=== PATIENT | female | born 1950 | race Caucasian/White ===

== ENCOUNTER 2018-03-28 20:02 | Inpatient (IN) ==
--- NOTE | 2018-03-28 21:46 | XR ---
EXAM DATE: 03/28/2018 9:43 PM EST AGE/SEX: 67 years / Female INDICATIONS: . Chest pain. CLINICAL DATA: This is the patient's initial encounter. Patient reports that signs and symptoms have been present for 1 day and indicates a pain score of 10/10. MEDICAL/SURGICAL HISTORY: None. None. COMPARISON: No prior exams available for comparison. FINDINGS: The heart size is normal. The lungs are clear. No effusion is seen. There is a retrocardiac mass with air lucency consistent with a moderate hiatal hernia. CONCLUSION: No acute cardiopulmonary abnormality. Moderate hiatal hernia. Electronically signed by: Samuel Maddox MD Board Certified Radiologist 03/28/2018 9:45 PM EST
[2018-03-28 21:57] LABS: Baso % (Auto) 0.6 % (0.0-2.0); Eos # (Auto) 0.3 th/mm3 (0.0-0.4); Hematocrit 37.1 % (35.0-46.0); Hemoglobin 12.5 gm/dL (11.6-15.3); Mean Corpuscular HGB Conc 33.8 % (32.0-36.0); Mean Corpuscular Hemoglobin 28.3 pg (27.0-34.0); Mean Corpuscular Volume 83.8 fL (80.0-100.0); Mean Platelet Volume 7.7 fL (7.0-11.0); Mono # (Auto) 0.5 th/mm3 (0.0-0.9); Neut # (Auto) 4.4 th/mm3 (1.8-7.7); Neut % (Auto) 60.4 % (16.0-70.0); Platelet Count 294 th/mm3 (150-450); Red Blood Count 4.43 mil/mm3 (4.00-5.30); Red Cell Distribution Width 14.8 % (11.6-17.2); White Blood Count 7.3 th/mm3 (4.0-11.0)
[2018-03-28 21:58] LABS: Activated Partial Thrombo Time 25.2 sec (23.4-31.7); Prothrombin Time 9.9 sec (9.8-11.6)
[2018-03-28 22:12] LABS: Albumin 3.8 g/dL (3.4-5.0); Anion Gap 9 meq/L (5-15); Aspartate Aminotransferase 21 U/L (15-37); Blood Urea Nitrogen 10 mg/dL (7-18); Calcium 8.6 mg/dL (8.5-10.1); Carbon Dioxide 22.6 meq/L (21.0-32.0); Chloride 107 meq/L (98-107); Glomerular Filtration Rate 69 mL/min (>89); Glucose,Random 99 mg/dL (74-106); Potassium 3.3 meq/L (3.5-5.1); Sodium 139 meq/L (136-145)
[2018-03-28 22:13] LABS: Alanine Aminotransferase 26 U/L (10-53)
[2018-03-28 22:16] LABS: Alkaline Phosphatase 131 U/L (45-117)
[2018-03-28 22:17] LABS: Creatine Kinase 68 U/L (26-192)
[2018-03-29] MEDS ORDERED: Morphine Inj 4 MG/ML Vial IV.PUSH ONE ×2 (00:17→02:04)
--- NOTE | 2018-03-29 02:00 | CT ---
EXAM DATE: 03/29/2018 1:53 AM EST AGE/SEX: 67 years / Female INDICATIONS: Midsternal chest pain, and shortness of breath. CLINICAL DATA: This is the patient's initial encounter. Patient reports that signs and symptoms have been present for 1 day and indicates a pain score of 7/10. MEDICAL/SURGICAL HISTORY: None. Tubal ligation. RADIATION DOSE: 10.58 CTDI (mGy) COMPARISON: No prior exams available for comparison. TECHNIQUE: Volumetric scanning was performed using a multi-row detector CT scanner during bolus infu melchor of 70 ml Omnipaque 350 (iohexol) nonionic water-soluble contrast as a single exam dose. The marielena a was post processed with a variety of visualization algorithms including full volume maximum intensi ty projection and sliding thin slab reformation. Using automated exposure control and adjustment of the mA and/or kV according to patient size, radiation dose was kept as low as reasonably achievable t o obtain optimal diagnostic quality images. DICOM format image data is available electronically for review and comparison. FINDINGS: Pulmonary Arteries: No filling defects are seen in the pulmonary arteries out to the subsegmental ve ssels. The left and right pulmonary arteries are normal in diameter. Lung: No infiltrates seen. Effusion: None. Mediastinum: No evidence of mediastinal or hilar adenopathy. Coronary calcifications. Large hiatal h ernia. Other: The axilla is unremarkable. CONCLUSION: This study is negative for pulmonary embolism. Electronically signed by: Samuel Jones MD Board Certified Radiologist 03/29/2018 1:59 AM EST
--- NOTE | 2018-03-29 02:08 | ED ---
HPI General Chief Complaint: Chest Pain Stated Complaint: Chest pain Time Seen by Provider: 03/28/18 23:58 Source: patient Mode of arrival: ambulatory Limitations: no limitations History of Present Illness HPI narrative: 67 yo F c/o chest pain for the past day, 7/10 in severity, constant, retrosternal pain. pleuritic and exertional components reported. pt drove down from [place] approx 1 week ago. no fever/chills. no cough. 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 pt denies past hx HTN/HLD/DM. + Family hx CAD. Related Data Home Medications Medication Instructions Recorded Confirmed No Known Home Medications 03/28/18 03/28/18 Allergies Allergy/AdvReac Type Severity Reaction Status Date / Time No Known Allergies Allergy Verified 03/28/18 20:27 Review of Systems ROS: all other systems reviewed are negative [facility] Medical History Medical History Patient denies medical problems (Acute) TMJ (dislocation of temporomandibular joint) (Acute) Surgical History Surgical History History of ankle surgery (Acute) History of tonsillectomy (Acute) Hx of knee surgery (Acute) Hx of tubal ligation (Acute) Social History Social History Smoking Status: Never smoker How Often Do You Have a Drink Containing Alcohol: Never Recent Travel in [facility] within the Last 8 Weeks: No Recent Out of Country Travel within the Last 8 Weeks: Yes Immunization History Tetanus Immunization: <5 Years Exam Narrative Exam Narrative: GENERAL: 67 yo F, WNWD, mild distress 2/2 pain SKIN: Focused skin assessment warm/dry. HEAD: Atraumatic. Normocephalic. EYES: Pupils equal and round. No scleral icterus. No injection or drainage. ENT: No nasal bleeding or discharge. Mucous membranes pink and moist. NECK: Trachea midline. No JVD. CARDIOVASCULAR: Regular rate and rhythm. No murmur appreciated. RESPIRATORY: No accessory muscle use. Clear to auscultation. Breath sounds equal bilaterally. GASTROINTESTINAL: Abdomen soft, non-tender, nondistended. Hepatic and splenic margins not palpable. MUSCULOSKELETAL: No obvious deformities. No clubbing. No cyanosis. No edema. NEUROLOGICAL: Awake and alert. No obvious cranial nerve deficits. Motor grossly within normal limits. Normal speech. PSYCHIATRIC: Appropriate mood and affect; insight and judgment normal. Course Initial Documented Vital Signs Temperature 98.5 F 03/28/18 20:23 Pulse Rate 90 03/28/18 20:23 Respiratory Rate 18 03/28/18 20:23 Blood Pressure 147/70 H 03/28/18 20:23 Pulse Oximetry 98 03/28/18 20:23 Last Documented Vital Signs Temperature 98.5 F 03/28/18 20:23 Pulse Rate 85 03/29/18 03:26 Respiratory Rate 16 03/29/18 03:26 Blood Pressure 156/81 H 03/29/18 03:26 Pulse Oximetry 99 03/29/18 03:26 Medical Decision Making MDM Narrative Medical decision making narrative: CBC normal K 3.3 Tn < 0.02 x 2 EKG sinus, rate 74, normal axis/intervals, no TWI/T wave flattening Persistent pain 5-7/10 after nitro SL x 3 and morphine followed by nitropaste and a second round of morphine. 310AM with persistent pain d/w Dr Yin for cardiology: [facility], heparin, metoprolol, aspirin, nitro, o2 Call to [facility] at 310AM d/w Dr Alvarado at 330AM Medical Screen Exam Complete: Yes Emergency Medical Condition: Yes Lab Data Result diagrams: 03/28/18 21:07 03/28/18 21:07 Lab Results 03/28/18 03/28/18 03/28/18 Range/Units 21:07 21:07 21:07 WBC 7.3 (4.0-11.0) th/mm3 RBC 4.43 (4.00-5.30) mil/mm3 Hgb 12.5 (11.6-15.3) gm/dL Hct 37.1 (35.0-46.0) % MCV 83.8 (80.0-100.0) fL MCH 28.3 (27.0-34.0) pg MCHC 33.8 (32.0-36.0) % RDW 14.8 (11.6-17.2) % Plt Count 294 (150-450) th/mm3 MPV 7.7 (7.0-11.0) fL Neut % (Auto) 60.4 (16.0-70.0) % Lymph % (Auto) 28.0 (9.0-44.0) % Phelps % (Auto) 7.0 (0.0-8.0) % Eos % (Auto) 4.0 (0.0-4.0) % Baso % (Auto) 0.6 (0.0-2.0) % Neut # (Auto) 4.4 (1.8-7.7) th/mm3 Lymph # (Auto) 2.0 (1.0-4.8) th/mm3 Phelps # (Auto) 0.5 (0.0-0.9) th/mm3 Eos # (Auto) 0.3 (0.0-0.4) th/mm3 Baso # (Auto) 0.0 (0.0-0.2) th/mm3 WBC Differential . Differential Comment Auto diff final PT 9.9 (9.8-11.6) sec INR 1.0 Ratio APTT 25.2 (23.4-31.7) sec Sodium 139 (136-145) meq/L Potassium 3.3 L (3.5-5.1) meq/L Chloride 107 (98-107) meq/L Carbon Dioxide 22.6 (21.0-32.0) meq/L Anion Gap 9 (5-15) meq/L BUN 10 (7-18) mg/dL Creatinine 0.83 (0.50-1.00) mg/dL Estimated GFR 69 L (>89) mL/min Random Glucose 99 (74-106) mg/dL Calcium 8.6 (8.5-10.1) mg/dL Total Bilirubin 0.3 (0.2-1.0) mg/dL AST 21 (15-37) U/L ALT 26 (10-53) U/L Alkaline Phosphatase 131 H (45-117) U/L Total Creatine Kinase 68 (26-192) U/L Troponin I Less than 0.02 L (0.02-0.05) ng/mL Total Protein 7.0 (6.4-8.2) g/dL Albumin 3.8 (3.4-5.0) g/dL 03/29/18 Range/Units 02:14 WBC (4.0-11.0) th/mm3 RBC (4.00-5.30) mil/mm3 Hgb (11.6-15.3) gm/dL Hct (35.0-46.0) % MCV (80.0-100.0) fL MCH (27.0-34.0) pg MCHC (32.0-36.0) % RDW (11.6-17.2) % Plt Count (150-450) th/mm3 MPV (7.0-11.0) fL Neut % (Auto) (16.0-70.0) % Lymph % (Auto) (9.0-44.0) % Phelps % (Auto) (0.0-8.0) % Eos % (Auto) (0.0-4.0) % Baso % (Auto) (0.0-2.0) % Neut # (Auto) (1.8-7.7) th/mm3 Lymph # (Auto) (1.0-4.8) th/mm3 Phelps # (Auto) (0.0-0.9) th/mm3 Eos # (Auto) (0.0-0.4) th/mm3 Baso # (Auto) (0.0-0.2) th/mm3 WBC Differential Differential Comment PT (9.8-11.6) sec INR Ratio APTT (23.4-31.7) sec Sodium (136-145) meq/L Potassium (3.5-5.1) meq/L Chloride (98-107) meq/L Carbon Dioxide (21.0-32.0) meq/L Anion Gap (5-15) meq/L BUN (7-18) mg/dL Creatinine (0.50-1.00) mg/dL Estimated GFR (>89) mL/min Random Glucose (74-106) mg/dL Calcium (8.5-10.1) mg/dL Total Bilirubin (0.2-1.0) mg/dL AST (15-37) U/L ALT (10-53) U/L Alkaline Phosphatase (45-117) U/L Total Creatine Kinase (26-192) U/L Troponin I Less than 0.02 L (0.02-0.05) ng/mL Total Protein (6.4-8.2) g/dL Albumin (3.4-5.0) g/dL Imaging Data Radiologist's impression: Chest X-Ray 03/28/18 00:00 CONCLUSION: No acute cardiopulmonary abnormality. Moderate hiatal hernia. Chest CTA 03/29/18 00:17 CONCLUSION: This study is negative for pulmonary embolism. Discharge Plan Discharge Order Discharge Orders: ED Use Only Admit Order (Routine); Ordered 03/29/18 Ordered By: Chirag Mai Physicians Team ED Provider: Chirag Mai Attending Provider: Lashay Alvarado Rxs /Orders / Referrals /Forms Prescriptions: No Action No Known Home Medications RF: 0 Discharge Interventions Interventions: Vital Signs Last Done: 03/29/18 03:26 Status ED Status: With Doctor
[2018-03-29] MEDS ORDERED: Heparin 10,000 UNITS/10 ML Vial (for IV use) IV.PUSH STA (03:14)
[2018-03-29] MEDS ORDERED: Metoprolol Tartrate 25 MG Tablet PO ONE (03:18)
[2018-03-29] MEDS ORDERED: Aluminum/Magnesium/Simethacone Susp 30 ML UDC PO ONE (03:21)
[2018-03-29] MEDS ORDERED: Bisacodyl 10 MG Supp RECTAL PRN (03:25)
[2018-03-29] MEDS: Heparin Drip 25,000 UNIT/250 ML BAG IV.CONT PRN (03:34)
[2018-03-29] MEDS: Sod Chloride 0.9% Inj 1,000 ML IV.CONT SCH ×2 (04:10→16:02)
--- NOTE | 2018-03-29 04:32 | P.HPIM ---
History of Present Illness Primary Care Physician: Salvador Sandoval History of Present Illness: This is a 67-year-old female with no significant PMH who presented to the ER with complaints of chest pain x1 day. States pain is substernal, moderate to severe, 7-8/10, non-radiating, associated w/ SOB. 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 Notes significant h/o Cardiac Disease, father at age 35yrs w/ [place], multiple family members w/ CAD. Today, w/ ongoing chest pain. Denies fever, chills or cough. On arrival, BP 179/82, HR 84, O2 sat 100% on RA, Afebrile. CBC unremarkable. INR 1.0. Chemistry unremarkable. Troponin negative x2. S/p multiple doses of NTG and Morphine in ER w/ persistent c/o chest pain. Dr. Yin consulted, recommendation for Heparin gtt w/ eval in am. Diagnosis (1) ACS (acute coronary syndrome): (2) Chest pain: (3) HTN (hypertension): Inpatient Certification Inpatient Certification: I certify that the inpatient services were ordered in accordance with Medicare regulations governing the order. This includes certification that hospital inpatient services are reasonable and necessary and in the case of services not specified as inpatient-only under 42 CFR 419.22(n), that they are appropriately provided as inpatient services in accordance to with the 2-midnight benchmark under 43 CFR 412.3(e) Estimated Total Length of Stay (Days): 2 Plans for Post Hospital Care: Not yet determined Review of Systems PAST FAMILY HISTORY: Reviewed, significant for CAD and multiple family members , father at age 35 of [place]. Review of Systems: all other systems reviewed are negative [facility] Medical History Medical History Patient denies medical problems (Acute) TMJ (dislocation of temporomandibular joint) (Acute) Surgical History Surgical History History of ankle surgery (Acute) History of tonsillectomy (Acute) Hx of knee surgery (Acute) Hx of tubal ligation (Acute) Social History Social History Smoking Status: Never smoker How Often Do You Have a Drink Containing Alcohol: Never Recent Travel in [place] within the Last 8 Weeks: No Recent Out of Country Travel within the Last 8 Weeks: Yes Immunization History Tetanus Immunization: <5 Years Medications and Allergies Allergies Allergy/AdvReac Type Severity Reaction Status Date / Time No Known Allergies Allergy Verified 03/28/18 20:27 Home Medications Medication Instructions Recorded Confirmed Type No Known Home Medications 03/28/18 03/28/18 History Active Medications: Active Medications Acetaminophen (Tylenol) 650 mg PO Q4H PRN PRN Reason: Temp > 100.4 Al Hydroxide/Mg Hydroxide (Milk Of Magnesia Liq) 30 ml PO Q12H PRN PRN Reason: Mild Constipation Aspirin (Ecotrin) 81 mg PO DAILY [facility] Bisacodyl (Dulcolax Supp) 10 mg RECTAL DAILY PRN PRN Reason: SEVERE CONSITIPATION Heparin Sodium/Dextrose (Heparin/D5w 25,000 U/250 Ml) 25,000 unit in 250 mls @ 0 mls/hr IV.CONT TITRATE PRN; Protocol PRN Reason: Per Protocol Last Admin: 03/29/18 03:34 Dose: 1,000 units/hr, 10 mls/hr Sodium Chloride (Ns Inj) 1,000 mls @ 100 mls/hr IV.CONT .Q10H [facility] Last Admin: 03/29/18 04:10 Dose: 100 mls/hr Lactulose (Lactulose Liq) 30 ml PO DAILY PRN PRN Reason: SEVERE CONSITIPATION Morphine Sulfate (Morphine Inj) 2 mg IV.PUSH Q4H PRN PRN Reason: PAIN SCALE 6 TO 10 Ondansetron HCl (Zofran Inj) 4 mg IV.PUSH Q6H PRN PRN Reason: NAUSEA OR VOMITING Pravastatin Sodium (Pravachol) 40 mg PO DAILY [facility] Senna/Docusate Sodium (Lola-Colace) 1 tab PO BID [facility] Sennosides (Senokot) 17.2 mg PO Q12H PRN PRN Reason: Moderate Constipation Sodium Chloride (Ns Flush) 2 ml IV.FLUSH BID [facility] Sodium Chloride (Ns Flush) 2 ml IV.FLUSH PRN PRN PRN Reason: FLUSH AFTER USING IV ACCESS Physical Exam Vital signs: Vital Signs 03/28/18 20:23 03/28/18 23:48 03/29/18 00:24 Temperature 98.5 F Pulse Rate 90 89 84 Respiratory Rate 18 16 16 Blood Pressure 147/70 H 179/82 H Pulse Oximetry 98 100 100 03/29/18 00:39 03/29/18 00:40 03/29/18 01:12 Temperature Pulse Rate 83 Respiratory Rate 16 16 Blood Pressure 180/86 H 161/72 H Pulse Oximetry 100 03/29/18 02:17 03/29/18 02:27 03/29/18 03:26 Temperature Pulse Rate 79 84 85 Respiratory Rate 20 16 16 Blood Pressure 189/88 H 165/76 H 156/81 H Pulse Oximetry 100 99 99 Intake & Output 03/28/18 03/28/18 03/29/18 06:59 18:59 06:59 Weight 97.522 kg Narrative: PE: GENERAL: Very pleasant middle-aged white female in no acute distress, persistent chest pain. SKIN: Focused skin assessment warm and dry. HEENT: PERRLA, EOMI. No scleral icterus or conjunctival pallor. No lid lag or facial droop. CARDIOVASCULAR: Regular rate and rhythm. No obvious murmurs to auscultation. No chest tenderness to palpation. RESPIRATORY: No obvious rhonchi or wheezing. Clear to auscultation. Breath sounds equal bilaterally. GASTROINTESTINAL: Abdomen soft, non-tender, nondistended. BS normal. MUSCULOSKELETAL: Extremities without clubbing, cyanosis, or edema. No obvious deformities. NEUROLOGICAL: Awake, alert and oriented x4. No focal neurologic deficits. Moving both upper and lower extremities spontaneously. PSYCHIATRIC: Appropriate mood and affect. Insight and judgment normal. Results Labs CBC & Chem 7: 03/28/18 21:07 03/28/18 21:07 Imaging Impressions Chest X-Ray 03/28/18 00:00 CONCLUSION: No acute cardiopulmonary abnormality. Moderate hiatal hernia. Chest CTA 03/29/18 00:17 CONCLUSION: This study is negative for pulmonary embolism. Caprini VTE Risk Assessment Caprini VTE Risk Assessment: No/Low Risk (score <= 1) Caprini Risk Assessment Model: Point Value = 1 Point Value = 2 Point Value = 3 Point Value = 5 Age 41-60 Minor surgery BMI > 25 kg/m2 Swollen legs Varicose veins or History of unexplained or recurrent spontaneous Oral contraceptives or hormone replacement Sepsis (< 1 month) Serious lung disease, including pneumonia (< 1 month) Abnormal pulmonary function Acute myocardial infarction Congestive heart failure (< 1 month) History of inflammatory bowel disease Medical patient at bed rest Age 61-74 Arthroscopic surgery Major open surgery (> 45 min) Laparoscopic surgery (> 45 min) Malignancy Confined to bed (> 72 hours) Immobilizing plaster cast Central venous access Age >= 75 History of VTE Family history of VTE Factor V Leiden Prothrombin [id number] Lupus anticoagulant Anticardiolipin antibodies Elevated serum homocysteine Heparin-induced thrombocytopenia Other congenital or acquired thrombophilia Stroke (< 1 month) Elective arthroplasty Hip, pelvis, or leg fracture Acute spinal cord injury (< 1 month) Prophylaxis Regimen: Total Risk Factor Score Risk Level Prophylaxis Regimen 0-1 Low Early ambulation 2 Moderate Order ONE of the following: *Sequential Compression Device (SCD) *Heparin 5000 units SQ BID 3-4 Higher Order ONE of the following medications: *Heparin 5000 units SQ TID *Enoxaparin/Lovenox 40 mg SQ daily (WT < 150 kg, CrCl > 30 mL/min) *Enoxaparin/Lovenox 30 mg SQ daily (WT < 150 kg, CrCl > 10-29 mL/min) *Enoxaparin/Lovenox 30 mg SQ BID (WT < 150 kg, CrCl > 30 mL/min) AND/OR *Sequential Compression Device (SCD) 5 or more Highest Order ONE of the following medications: *Heparin 5000 units SQ TID (Preferred with Epidurals) *Enoxaparin/Lovenox 40 mg SQ daily (WT < 150 kg, CrCl > 30 mL/min) *Enoxaparin/Lovenox 30 mg SQ daily (WT < 150 kg, CrCl > 10-29 mL/min) *Enoxaparin/Lovenox 30 mg SQ BID (WT < 150 kg, CrCl > 30 mL/min) AND *Sequential Compression Device (SCD) Assessment and Plan (1) ACS (acute coronary syndrome): Code(s): I24.9 - Acute ischemic heart disease, unspecified Status: Acute (2) Chest pain: Code(s): R07.9 - Chest pain, unspecified Status: Acute (3) HTN (hypertension): Code(s): I10 - Essential (primary) hypertension Status: Acute Plan A/P: 1. ACS: recent abnormal Stress Test 01/2018 back home in [place], now w/ ongoing chest pain, Dr. Yin consulted, recommendation for Heparin gtt, eval in am for likely cath. NPO, telemetry, continue Heparin gtt, NTG/Morphine prn. Check serial cardiac enzymes. 2. Chest Pain: Intractable, some improvement w/ NTG/Morphine, currently 04/20, will continue w/ analgesics/NTG as needed. ASA, Statin, Metoprolol 3. HTN: Uncontrolled, monitor BP, antihypertensives as needed, start Metoprolol. 4. DVT Prophylaxis: Heparin gtt 5. Social work for DC planning as needed. 6. Case discussed at length with the ER physician, labs/records/imaging reviewed by me.
[2018-03-29 04:59] LABS: Chol/HDL Ratio 3.65 Ratio; HDL Cholesterol 54.2 mg/dL (40.0-60.0)
[2018-03-29 07:53] LABS: Activated Partial Thrombo Time 52.2 sec (23.4-31.7); Prothrombin Time 10.5 sec (9.8-11.6)
--- NOTE | 2018-03-29 08:35 | P.PNIM ---
Subjective Interval history: Follow-up for chest pain Still with chest pain, substernal, about 4/10, worse with deep inhalation and pressing on her anterior chest area. No shortness of breath. Physical Exam Vital signs: Vital Signs 03/28/18 20:23 03/28/18 23:48 03/29/18 00:24 Temperature 98.5 F Pulse Rate 90 89 84 Respiratory Rate 18 16 16 Blood Pressure 147/70 H 179/82 H Pulse Oximetry 98 100 100 03/29/18 00:39 03/29/18 00:40 03/29/18 01:12 Temperature Pulse Rate 83 Respiratory Rate 16 16 Blood Pressure 180/86 H 161/72 H Pulse Oximetry 100 03/29/18 02:17 03/29/18 02:27 03/29/18 03:26 Temperature Pulse Rate 79 84 85 Respiratory Rate 20 16 16 Blood Pressure 189/88 H 165/76 H 156/81 H Pulse Oximetry 100 99 99 03/29/18 04:00 03/29/18 05:00 03/29/18 06:00 Temperature 96.6 F L Pulse Rate 74 77 76 Respiratory Rate 18 Blood Pressure 129/82 Pulse Oximetry 98 03/29/18 07:00 03/29/18 08:00 Temperature 97.9 F Pulse Rate 73 73 Respiratory Rate 18 Blood Pressure 109/57 L Pulse Oximetry 98 Intake & Output 03/28/18 03/29/18 03/29/18 18:59 06:59 18:59 Output Total 400 / 400 Balance -400 / -400 Weight 95 kg Output: Urine 400 / 400 Narrative: Not in distress Pupils equal round reactive Delphi conjunctivae Anicteric Regular rate and rhythm, no murmurs, reproducible tenderness on palpation of the chest Clear breath sounds Abdomen soft nontender No edema Alert awake and oriented x3, no focal deficits. Results Labs CBC & Chem 7: 03/28/18 21:07 03/28/18 21:07 Imaging Imaging: Impressions Chest X-Ray 03/28/18 00:00 CONCLUSION: No acute cardiopulmonary abnormality. Moderate hiatal hernia. Chest CTA 03/29/18 00:17 CONCLUSION: This study is negative for pulmonary embolism. Assessment and Plan (1) ACS (acute coronary syndrome): Code(s): I24.9 - Acute ischemic heart disease, unspecified Status: Acute (2) Chest pain: Code(s): R07.9 - Chest pain, unspecified Status: Acute (3) HTN (hypertension): Code(s): I10 - Essential (primary) hypertension Status: Acute Plan This is a 67-year-old female with no significant past medical history but with significant family history of cardiac illness, father at 35 from [place] presenting with chest pain for 1 day. r/o unstable angina- patient has strong family history, patient at 35 years old of [place]. Recent abnormal Stress Test 01/2018 back home in [place], now w/ ongoing chest pain, reproducible on chest palpation, cardiology consulted ,recommendation for Heparin gtt, troponin negative x2, EKG negative, showed sinus rhythm, normal axis, no ischemia. Keep n.p.o., for cardiac catheterization today. Continue nitroglycerin, morphine as needed. Continue aspirin, statin and metoprolol. LDL 131. CTA negative for PE. Patient even with negative EKG and cardiac enzymes would prefer to get a cardiac catheterization at this point because of her risks. Uncontrolled hypertension-continue metoprolol DVT prophylaxis: Heparin drip. Progress Note: Quality VTE Deep Vein Thrombosis/Pulmonary Embolism Present on Admission: No
--- NOTE | 2018-03-29 09:32 | ECG ---
Date Performed: 03/29/2018 Time Performed: 02:11:04 PTAGE: 67 years EKG: Sinus rhythm BORDERLINE LEFT AXIS DEVIATION BORDERLINE ECG No significant change from prior electrocardiogram. PREVIOUS TRACING : 03/28/2018 21.00 DOCTOR: Juan Carlos Khan Interpretating Date/Time 03/29/2018 09:31:50
[2018-03-29] MEDS: Metoprolol Tartrate 25 MG Tablet PO SCH ×2 (11:03→20:01)
[2018-03-29] MEDS: Senna/Docusate Sodium 8.6/50 MG Tablet PO SCH ×2 (11:03→20:01)
[2018-03-29] MEDS: Morphine Sulfate Inj 2 MG/ML Vial IV.PUSH PRN (12:00)
--- NOTE | 2018-03-29 13:50 | MB ---
cc: Kenny Yin MD DATE: 03/29/2018 HISTORY OF PRESENT ILLNESS: This is a very pleasant 67-year-old lady visiting from [place] and apparently had a positive stress test in January, had a discussion about doing a heart catheterization, which she has not done. She presents to the ER with chief complaint of severe chest pain. She is resting comfortably currently. Denies fever, chills, cough, GI or bleeding, pain, orthopnea, syncope or dizziness. PAST MEDICAL HISTORY: Per history of present illness. She has a history of TMJ dislocation, ankle surgery, tonsillectomy, knee surgery, tubal ligation. ALLERGIES: NONE. SOCIAL HISTORY: Denies tobacco use. Denies alcohol use. MEDICATIONS IN THE HOSPITAL: 1. Aspirin 81 mg a day. 2. Heparin drip. 3. Toprol 25 mg b.i.d. 4. Pravachol 40 mg daily. PHYSICAL EXAMINATION: VITAL SIGNS: Pulse 74, blood pressure 109/57, respiratory rate 18, temperature 97.9. GENERAL: She is alert and oriented x3, in no acute distress. NECK: Supple. No JVD. No bruit. CARDIOVASCULAR: S1, S2. No murmurs, rubs or gallops. LUNGS: Clear to auscultation bilaterally. ABDOMEN: Soft, nontender, nondistended with positive bowel sounds. EXTREMITIES: No lower extremity edema. LABORATORY DATA: Her EKG shows normal sinus rhythm at 91 beats per minute, borderline left axis deviation, otherwise normal. CTA of the chest negative for pulmonary embolism. White count 7.3, hemoglobin 12.5, hematocrit 37.1, platelet count 294,000. INR 1, PTT 52.2. Troponin less than 0.02 x2. Sodium 139, potassium 3.3, chloride 107, bicarbonate 22.6, BUN 10, creatinine 0.3. LDL is 131. DIAGNOSES: 1. Unstable angina. 2. Hypokalemia. DISCUSSION: The patient is being appropriately treated with aspirin, heparin drip, beta myrtle and statin. She is relatively hypotensive, so EULA inhibitor is being held. Recommend repeating electrolytes p.r.n. and plan to perform left heart catheterization on 03/31/2018. The patient is currently asymptomatic on the aforementioned medications. MD RYNE Chambers/obdulia , 01:02 PM , 01:09 PM
--- NOTE | 2018-03-29 14:11 | ECG ---
Date Performed: 03/28/2018 Time Performed: 21:00:54 PTAGE: 67 years EKG: Sinus rhythm BORDERLINE LEFT AXIS DEVIATION BORDERLINE ECG NO PREVIOUS TRACING DOCTOR: Juan Carlos Khan Interpretating Date/Time 03/29/2018 14:09:24
[2018-03-29] MEDS ORDERED: Potassium Chloride Liq 20 MEQ/15 ML UDC PO ONE (15:13)
[2018-03-29] MEDS: Acetaminophen 325 MG Tablet PO PRN (20:01)
[2018-03-30] MEDS: Sod Chloride 0.9% Inj 1,000 ML IV.CONT SCH ×3 (01:14→22:50)
[2018-03-30] MEDS: Heparin Drip 25,000 UNIT/250 ML BAG IV.CONT PRN ×2 (01:16→15:39)
[2018-03-30] MEDS: Metoprolol Tartrate 25 MG Tablet PO SCH ×2 (09:09→20:25)
[2018-03-30] MEDS: Senna/Docusate Sodium 8.6/50 MG Tablet PO SCH ×2 (09:09→20:25)
--- NOTE | 2018-03-30 09:28 | P.PNIM ---
Subjective Interval history: EULA inhibitor is being held because of hypotension. No overnight events, no fever or chills, denies any chest pain. Physical Exam Vital signs: Vital Signs 03/29/18 10:00 03/29/18 11:00 03/29/18 12:00 Temperature 98.0 F Pulse Rate 70 68 70 Respiratory Rate 18 Blood Pressure 112/58 L Pulse Oximetry 98 03/29/18 13:00 03/29/18 14:00 03/29/18 15:00 Temperature Pulse Rate 68 70 72 Respiratory Rate Blood Pressure Pulse Oximetry 03/29/18 16:00 03/29/18 17:00 03/29/18 18:00 Temperature 97.8 F Pulse Rate 72 72 70 Respiratory Rate 20 Blood Pressure 118/68 Pulse Oximetry 98 03/29/18 19:00 03/29/18 20:00 03/29/18 21:00 Temperature 97.4 F L Pulse Rate 75 80 80 Respiratory Rate 18 Blood Pressure 107/55 L Pulse Oximetry 97 03/29/18 22:00 03/29/18 23:00 03/30/18 00:00 Temperature Pulse Rate 80 70 72 Respiratory Rate 16 Blood Pressure Pulse Oximetry 03/30/18 01:00 03/30/18 02:00 03/30/18 03:00 Temperature Pulse Rate 64 94 H 106 H Respiratory Rate Blood Pressure Pulse Oximetry 03/30/18 04:00 03/30/18 05:00 03/30/18 06:00 Temperature Pulse Rate 100 H 105 H 108 H Respiratory Rate Blood Pressure Pulse Oximetry 03/30/18 07:09 Temperature 98.1 F Pulse Rate 75 Respiratory Rate 17 Blood Pressure 117/78 Pulse Oximetry 98 Intake & Output 03/29/18 03/30/18 03/30/18 18:59 06:59 18:59 Intake Total 1480 / 1480 250 / 250 360 / 360 Output Total 800 / 800 2650 / 2650 Balance 680 / 680 250 / 250 -2290 / -2290 Weight 96 kg Intake: IV 1000 / 1000 250 / 250 Heparin/D5W 25,000 U/250 mL 25, 250 / 250 000 unit In 250 ml @ Per Protocol IV.CONT TITRATE PRN Rx #:[id number] NS Inj 1,000 ML @ 100 mls/hr IV 1000 / 1000 .CONT .Q10H JUSTINO Rx#:[id number] Oral 480 / 480 360 / 360 Output: Urine 800 / 800 2650 / 2650 Other: Date of Last Bowel Movement 03/29/18 03/29/18 03/29/18 # Bowel Movements 1 Narrative: Not in distress Pupils equal round reactive [place] conjunctivae Anicteric Regular rate and rhythm, no murmurs, reproducible tenderness on palpation of the chest Clear breath sounds Abdomen soft nontender No edema Alert awake and oriented x3, no focal deficits. Results Labs CBC & Chem 7: 03/30/18 07:03 03/30/18 07:03 Assessment and Plan (1) ACS (acute coronary syndrome): Code(s): I24.9 - Acute ischemic heart disease, unspecified Status: Acute (2) Chest pain: Code(s): R07.9 - Chest pain, unspecified Status: Acute (3) HTN (hypertension): Code(s): I10 - Essential (primary) hypertension Status: Acute Plan This is a 67-year-old female with no significant past medical history but with significant family history of cardiac illness, father at 35 from [place] presenting with chest pain for 1 day. r/o unstable angina- patient has strong family history, patient at 37 years old of [place]. Recent abnormal Stress Test 01/2018 back home in [place], now w/ ongoing chest pain, reproducible on chest palpation, cardiology consulted ,recommendation for Heparin gtt, troponin negative x2, EKG negative, showed sinus rhythm, normal axis, no ischemia. Continue nitroglycerin, morphine as needed. Continue aspirin, statin and metoprolol. LDL 131. CTA negative for PE. Patient even with negative EKG and cardiac enzymes, for cardiac catheterization on Saturday. N.p.o. after midnight. CBC and BMP stable. Hypertension-continue metoprolol. DVT prophylaxis: Heparin drip. Progress Note: Quality VTE Deep Vein Thrombosis/Pulmonary Embolism Present on Admission: No
[2018-03-30 09:32] LABS: Baso % (Auto) 0.3 % (0.0-2.0); Eos # (Auto) 0.2 th/mm3 (0.0-0.4); Eos % (Auto) 3.9 % (0.0-4.0); Hematocrit 36.2 % (35.0-46.0); Hemoglobin 12.2 gm/dL (11.6-15.3); Lymph # (Auto) 2.1 th/mm3 (1.0-4.8); Lymph % (Auto) 46.8 % (9.0-44.0); Mean Corpuscular HGB Conc 33.7 % (32.0-36.0); Mean Corpuscular Hemoglobin 28.7 pg (27.0-34.0); Mono # (Auto) 0.4 th/mm3 (0.0-0.9); Mono % (Auto) 8.8 % (0.0-8.0); Neut # (Auto) 1.8 th/mm3 (1.8-7.7); Neut % (Auto) 40.2 % (16.0-70.0); Platelet Count 249 th/mm3 (150-450); Red Blood Count 4.26 mil/mm3 (4.00-5.30); Red Cell Distribution Width 14.5 % (11.6-17.2); White Blood Count 4.6 th/mm3 (4.0-11.0)
[2018-03-30 10:00] LABS: Albumin 3.2 g/dL (3.4-5.0); Anion Gap 7 meq/L (5-15); Aspartate Aminotransferase 17 U/L (15-37); Blood Urea Nitrogen 9 mg/dL (7-18); Calcium 8.5 mg/dL (8.5-10.1); Carbon Dioxide 24.4 meq/L (21.0-32.0); Chloride 114 meq/L (98-107); Glomerular Filtration Rate 88 mL/min (>89); Glucose,Random 86 mg/dL (74-106); Sodium 145 meq/L (136-145)
[2018-03-30 10:01] LABS: Alanine Aminotransferase 28 U/L (10-53)
[2018-03-30 10:03] LABS: Alkaline Phosphatase 101 U/L (45-117); Total Protein 6.2 g/dL (6.4-8.2)
--- NOTE | 2018-03-30 12:04 | P.PNCA ---
Subjective Interval history: assymptomatic, in nad Medications and Allergies Active Medications: Active Medications Acetaminophen (Tylenol) 650 mg PO Q4H PRN PRN Reason: Temp > 100.4 Last Admin: 03/29/18 20:01 Dose: 650 mg Al Hydroxide/Mg Hydroxide (Milk Of Magnesia Liq) 30 ml PO Q12H PRN PRN Reason: Mild Constipation Aspirin (Ecotrin) 81 mg PO DAILY [facility] Last Admin: 03/30/18 09:09 Dose: 81 mg Bisacodyl (Dulcolax Supp) 10 mg RECTAL DAILY PRN PRN Reason: SEVERE CONSITIPATION Heparin Sodium/Dextrose (Heparin/D5w 25,000 U/250 Ml) 25,000 unit in 250 mls @ 0 mls/hr IV.CONT TITRATE PRN; Protocol PRN Reason: Per Protocol Last Admin: 03/30/18 01:16 Dose: 1,000 units/hr, 10 mls/hr Sodium Chloride (Ns Inj) 1,000 mls @ 100 mls/hr IV.CONT .Q10H [facility] Last Admin: 03/30/18 01:14 Dose: Not Given Lactulose (Lactulose Liq) 30 ml PO DAILY PRN PRN Reason: SEVERE CONSITIPATION Metoprolol Tartrate (Lopressor) 25 mg PO BID [facility] Last Admin: 03/30/18 09:09 Dose: 25 mg Morphine Sulfate (Morphine Inj) 2 mg IV.PUSH Q4H PRN PRN Reason: PAIN SCALE 6 TO 10 Last Admin: 03/29/18 12:00 Dose: 2 mg Ondansetron HCl (Zofran Inj) 4 mg IV.PUSH Q6H PRN PRN Reason: NAUSEA OR VOMITING Pravastatin Sodium (Pravachol) 40 mg PO DAILY [facility] Last Admin: 03/30/18 09:09 Dose: 40 mg Senna/Docusate Sodium (Lola-Colace) 1 tab PO BID [facility] Last Admin: 03/30/18 09:09 Dose: Not Given Sennosides (Senokot) 17.2 mg PO Q12H PRN PRN Reason: Moderate Constipation Sodium Chloride (Ns Flush) 2 ml IV.FLUSH BID [facility] Last Admin: 03/29/18 20:01 Dose: Not Given Sodium Chloride (Ns Flush) 2 ml IV.FLUSH PRN PRN PRN Reason: FLUSH AFTER USING IV ACCESS Allergies Allergy/AdvReac Type Severity Reaction Status Date / Time No Known Allergies Allergy Verified 03/28/18 20:27 Home Medications Medication Instructions Recorded Confirmed Type No Known Home Medications 03/28/18 03/28/18 History Physical Exam Vital signs: Vital Signs 03/29/18 13:00 03/29/18 14:00 03/29/18 15:00 Temperature Pulse Rate 68 70 72 Respiratory Rate Blood Pressure Pulse Oximetry 03/29/18 16:00 03/29/18 17:00 03/29/18 18:00 Temperature 97.8 F Pulse Rate 72 72 70 Respiratory Rate 20 Blood Pressure 118/68 Pulse Oximetry 98 03/29/18 19:00 03/29/18 20:00 03/29/18 21:00 Temperature 97.4 F L Pulse Rate 75 80 80 Respiratory Rate 18 Blood Pressure 107/55 L Pulse Oximetry 97 03/29/18 22:00 03/29/18 23:00 03/30/18 00:00 Temperature Pulse Rate 80 70 72 Respiratory Rate 16 Blood Pressure Pulse Oximetry 03/30/18 01:00 03/30/18 02:00 03/30/18 03:00 Temperature Pulse Rate 64 94 H 106 H Respiratory Rate Blood Pressure Pulse Oximetry 03/30/18 04:00 03/30/18 05:00 03/30/18 06:00 Temperature Pulse Rate 100 H 105 H 108 H Respiratory Rate Blood Pressure Pulse Oximetry 03/30/18 07:00 03/30/18 07:09 03/30/18 08:00 Temperature 98.1 F Pulse Rate 70 75 76 Respiratory Rate 17 Blood Pressure 117/78 Pulse Oximetry 98 03/30/18 09:00 03/30/18 10:00 Temperature Pulse Rate 90 82 Respiratory Rate Blood Pressure Pulse Oximetry Intake & Output 03/29/18 03/30/18 03/30/18 18:59 06:59 18:59 Intake Total 1480 / 1480 250 / 250 360 / 360 Output Total 800 / 800 2650 / 2650 Balance 680 / 680 250 / 250 -2290 / -2290 Weight 96 kg Intake: IV 1000 / 1000 250 / 250 Heparin/D5W 25,000 U/250 mL 25, 250 / 250 000 unit In 250 ml @ Per Protocol IV.CONT TITRATE PRN Rx #:[id number] NS Inj 1,000 ML @ 100 mls/hr IV 1000 / 1000 .CONT .Q10H [facility] Rx#:[id number] Oral 480 / 480 360 / 360 Output: Urine 800 / 800 2650 / 2650 Other: Date of Last Bowel Movement 03/29/18 03/29/18 03/29/18 # Bowel Movements 1 - Constitutional no acute distress - Routine HEENT Exam Head: Present: normocephalic - Routine Neck Exam Present: supple - Routine Respiratory Exam Present: CTA bilaterally - Routine Cardiovascular Exam Present: S1, S2 - Routine Abdominal Exam Present: soft - Routine Extremities Exam Comments: no riki Results 03/30/18 07:03 03/30/18 07:03 Cardiac Enzymes 03/28/18 03/29/18 03/29/18 Range/Units 21:07 02:14 02:14 AST 21 (15-37) U/L Troponin I Less than 0.02 L Less than 0.02 L Cancelled (0.02-0.05) ng/mL 03/30/18 Range/Units 07:03 AST 17 (15-37) U/L Troponin I (0.02-0.05) ng/mL Coagulation 03/28/18 03/29/18 03/29/18 Range/Units 21:07 07:29 13:35 PT 9.9 10.5 (9.8-11.6) sec APTT 25.2 52.2 H D 42.7 H (23.4-31.7) sec 03/30/18 Range/Units 07:03 PT (9.8-11.6) sec APTT 42.3 H (23.4-31.7) sec Lipids 03/29/18 Range/Units 02:14 Triglycerides 66 (42-150) mg/dL Cholesterol 198 (120-200) mg/dL HDL Cholesterol 54.2 (40.0-60.0) mg/dL Cholesterol/HDL Ratio 3.65 Ratio CBC 03/28/18 03/30/18 Range/Units 21:07 07:03 WBC 7.3 4.6 (4.0-11.0) th/mm3 RBC 4.43 4.26 (4.00-5.30) mil/mm3 Hgb 12.5 12.2 (11.6-15.3) gm/dL Hct 37.1 36.2 (35.0-46.0) % Plt Count 294 249 (150-450) th/mm3 Neut # (Auto) 4.4 1.8 (1.8-7.7) th/mm3 Lymph # (Auto) 2.0 2.1 (1.0-4.8) th/mm3 Summers # (Auto) 0.5 0.4 (0.0-0.9) th/mm3 Eos # (Auto) 0.3 0.2 (0.0-0.4) th/mm3 Baso # (Auto) 0.0 0.0 (0.0-0.2) th/mm3 Comprehensive Metabolic Panel 03/28/18 03/30/18 Range/Units 21:07 07:03 Sodium 139 145 (136-145) meq/L Potassium 3.3 L 4.0 (3.5-5.1) meq/L Chloride 107 114 H (98-107) meq/L Carbon Dioxide 22.6 24.4 (21.0-32.0) meq/L BUN 10 9 (7-18) mg/dL Creatinine 0.83 0.67 (0.50-1.00) mg/dL Calcium 8.6 8.5 (8.5-10.1) mg/dL AST 21 17 (15-37) U/L ALT 26 28 (10-53) U/L Alkaline Phosphatase 131 H 101 (45-117) U/L Total Protein 7.0 6.2 L D (6.4-8.2) g/dL Albumin 3.8 3.2 L D (3.4-5.0) g/dL Intake and Output 03/29/18 03/30/18 03/30/18 22:59 06:59 14:59 Intake Total 1480 / 1480 250 / 250 360 / 360 Output Total 800 / 800 2650 / 2650 Balance 680 / 680 250 / 250 -2290 / -2290 Intake: IV 1000 / 1000 250 / 250 Heparin/D5W 25,000 U/250 mL 25, 250 / 250 000 unit In 250 ml @ Per Protocol IV.CONT TITRATE PRN Rx #:[id number] NS Inj 1,000 ML @ 100 mls/hr IV 1000 / 1000 .CONT .Q10H JUSTINO Rx#:[id number] Oral 480 / 480 360 / 360 Output: Urine 800 / 800 2650 / 2650 Other: Date of Last Bowel Movement 03/29/18 03/29/18 # Bowel Movements 1 Weight 96 kg - Imaging and Cardiology Imaging: Impressions Chest X-Ray 03/28/18 00:00 CONCLUSION: No acute cardiopulmonary abnormality. Moderate hiatal hernia. Chest CTA 03/29/18 00:17 CONCLUSION: This study is negative for pulmonary embolism. Assessment and Plan - Assessment (1) HTN (hypertension) Code(s): I10 - Essential (primary) hypertension Status: Acute (2) ACS (acute coronary syndrome) Code(s): I24.9 - Acute ischemic heart disease, unspecified Status: Acute - Plan 1.) ACS - assymptomatic on aspirin, iv heparin, [facility] 03/31/18 due to [facility] class 4 angina, abnormal mps jan 2018 in [place]
[2018-03-30 13:33] LABS: Baso % (Auto) 0.7 % (0.0-2.0); Eos # (Auto) 0.2 th/mm3 (0.0-0.4); Eos % (Auto) 3.3 % (0.0-4.0); Hematocrit 34.3 % (35.0-46.0); Lymph # (Auto) 2.1 th/mm3 (1.0-4.8); Lymph % (Auto) 32.5 % (9.0-44.0); Mean Corpuscular HGB Conc 34.9 % (32.0-36.0); Mean Corpuscular Hemoglobin 29.2 pg (27.0-34.0); Mean Corpuscular Volume 83.6 fL (80.0-100.0); Mean Platelet Volume 7.6 fL (7.0-11.0); Mono # (Auto) 0.6 th/mm3 (0.0-0.9); Neut # (Auto) 3.5 th/mm3 (1.8-7.7); Neut % (Auto) 54.5 % (16.0-70.0); Platelet Count 273 th/mm3 (150-450); White Blood Count 6.4 th/mm3 (4.0-11.0)
[2018-03-30 13:39] LABS: Activated Partial Thrombo Time 36.2 sec (23.4-31.7); Prothrombin Time 10.1 sec (9.8-11.6)
[2018-03-30] MEDS: Acetaminophen 325 MG Tablet PO PRN ×2 (14:52→23:43)
[2018-03-30] MEDS: Morphine Sulfate Inj 2 MG/ML Vial IV.PUSH PRN ×2 (18:03→20:24)
[2018-03-31] MEDS: Heparin Drip 25,000 UNIT/250 ML BAG IV.CONT PRN (00:41)
[2018-03-31 01:18] LABS: Calcium 8.3 mg/dL (8.5-10.1); Potassium 3.9 meq/L (3.5-5.1)
[2018-03-31] MEDS: Sod Chloride 0.9% Inj 1,000 ML IV.CONT SCH ×2 (06:54→16:36)
[2018-03-31] MEDS: Metoprolol Tartrate 25 MG Tablet PO SCH ×2 (09:14→20:47)
[2018-03-31] MEDS: Senna/Docusate Sodium 8.6/50 MG Tablet PO SCH ×2 (09:15→20:46)
[2018-03-31] MEDS: Morphine Sulfate Inj 2 MG/ML Vial IV.PUSH PRN ×2 (09:16→20:48)
[2018-03-31 10:19] LABS: Hematocrit 34.8 % (35.0-46.0); Hemoglobin 11.7 gm/dL (11.6-15.3); Mean Corpuscular HGB Conc 33.7 % (32.0-36.0); Mean Corpuscular Hemoglobin 28.1 pg (27.0-34.0); Mean Corpuscular Volume 83.5 fL (80.0-100.0); Mean Platelet Volume 7.9 fL (7.0-11.0); Platelet Count 248 th/mm3 (150-450); Red Blood Count 4.17 mil/mm3 (4.00-5.30); White Blood Count 4.9 th/mm3 (4.0-11.0)
[2018-03-31] MEDS ORDERED: Heparin/NS PF Inj 1,000 ML ONE (11:43)
[2018-03-31] MEDS ORDERED: fentaNYL Citrate Inj 100 MCG/2 ML Ampul ONE (11:44)
[2018-03-31] MEDS ORDERED: Heparin 10,000 UNITS/10 ML Vial (for IV use) ONE (11:44)
[2018-03-31] MEDS ORDERED: Iohexol 350 MG/ML 100 ML Vial (for Cath Lab) IVCONTRAST ONE (12:35)
[2018-03-31] MEDS ORDERED: Tirofiban Inj 12,500 MCG/250 ML PLAST..BAG ONE (12:51)
[2018-03-31] MEDS ORDERED: Misc Info for Pharmacy OTHER STA (13:20)
--- NOTE | 2018-03-31 13:36 | CATHPROC ---
[employer] HIS Report Study Information Study Number Admission Scheduled Start Study Start [id number] Mar 29 2018 3:35AM 03/31/2018 Mar 31 2018 11:54AM [facility]iac Catheterization Admit Source Facility Department Other [facility] - Manager Office Physician and Clinical Staff Initial Kenny Israel Vending Machine Filler Madison RitterRN Recorder Alma Morales RCIS Procedures Performed Procedure Location (Site) Vessel Name Coronary Angiograms LCA Left Coronary Coronary Angiograms RCA Right Coronary LV Gram-hand inj. LV LV Ventricle PTCA CIRC Prox CIRC PTCA ADD ON'S Stent CIRC Prox CIRC Wire insertion Fem Art (right) Femoral Art Equipment Time Printing Press Machine Operator Description Size Mfg Part Number Used/Scraped [id number] 12:51 ASAThe Society INTECC WIRE, ASAThe Society PROWATER 180CM 180CM Used *[id number] TRANSDUCER, TRUWAVE [id number] 12:10 Beamr SHRESTHA * Used W/STOCKCOCK *[id number] 538-420 *[id number] 538-421 *[id number] *[id number] 12:10 [employer] BLANKET,WARM AIR CCL * Used *[id number] 12:10 [employer]User PACK, CCL CUSTOM * Used *[id number] 12:10 Analiza PACER PEN, SKIN DUAL W/ RULER * Used *[id number] BALLOON, 3.0 X 8MM NC [id number] 12:59 MEDTRONIC 8MM Used EUPHORA *[id number] 12:55 MEDTRONIC STENT, 3.0 12 INTEGRITY 3.0 12 Used *[id number] 12:52 51 Auto MEDICAL 30 MADHURI INDEFLATOR Used *[id number] 12:49 51 Auto MEDICAL SHEATH, FR6.5 PRELUDE 11CM FR 6.5 038ACT Used *[id number] 12:10 51 Auto MEDICAL WIRE, 3MMJ .035 180CM 180CM Used *[id number] 12:10 NAMIC MANIFOLD, 4 PORT * Used *[id number] 12:10 NYCOMED OMNIPAQUE, 350 MG, 150ML 150ML [id number] Used [id number] 12:10 TERUMO MEDICAL SHEATH, FR4 TERUMO (10CM) FR 4 Used *[id number] Equipment Model, Serial, Lot Number and Expiration Data Description Model Number Serial Number Lot Number Expiration Date STENT, 3.0 12 INTEGRITY [id number] 07-09-2019 History: Allergies Allergy Reaction No Known Allergies History: Risk Factors Family History of Hypertension Dyslipidemia Previous IL Previous Heart Failure Premature CAD No No No No No Prior Valve Prior PCI Prior CABG Surgery No No No Cerebrovascular Peripheral Artery Chronic Lung On Dialysis Diabetes Disease Disease Disease No No No No No History: Stress Tests Stress or Imaging Studies Performed Yes Standard Exercise Stress Test No Stress Echo No Stress Test SPECT No Stress Test CMR No Cardiac CTA Coronary Calcium Score No No History: Other Current Smoker No Labs Hgb (g/dl) Hct (%) WBC (l/cumm) Platelets (thousands) 11.60-17.00 35.00-51.00 4.00-11.00 150.00-450.00 12.0 34 4.1 273 Glucose (mg/dl) BUN (mg/dl) Creatinine (mg/dl) BUN:Creatinine (1:x) 74.00-106.00 7.00-18.00 0.50-1.30 10.00-20.00 108 9 0.7 12.9 Na (meq/l) K (meq/l) 136.00-145.00 3.50-5.10 144 3.9 Troponin I (ng/ml) CPK-MB (ng/ML) 0.02-0.05 0.50-3.60 0.02 Not Drawn Medication Medication Total Dose (Bolus/Oral) Medication Total Dosage/Unit 1% XYLOCAINE 20 mL AGGRASTAT BOLUS 49 mL EFFIENT 60 mg FENTANYL 25 mcg HEPARIN 6800 units VERSED 1 mg Medications (Bolus/Oral) Medication Time Given Dosage/Unit Administered By Reason VERSED 03/31/2018 12:31:03 PM 1 mg Anyi Ritteraret 1 mg VERSED given in lab by Madison Ritter, RN via Peripheral IV. FENTANYL 03/31/2018 12:34:21 PM 25 mcg Anyi Ritteraret 25 mcg FENTANYL given in lab by Madison Ritter, RN via Peripheral IV. 1% XYLOCAINE 03/31/2018 12:37:58 PM 20 mL Kenny Yin 20 mL 1% XYLOCAINE given in lab by Kenny Yin in Right Groin via Subcutaneous. Ordered by Kenny Ramon. HEPARIN 03/31/2018 12:49:19 PM 6800 units Madison Ritter 6800 units HEPARIN given in lab by Madison Ritter RN via Peripheral IV. Ordered by Danielle Yin AGGRASTAT BOLUS 03/31/2018 1:05:38 PM 49 mL Madison Ritter 49 mL AGGRASTAT BOLUS given in lab by Madison Ritter RN via Peripheral IV. Ordered by Edwin Yin EFFIENT 03/31/2018 1:10:40 PM 60 mg Madison Ritter 60 mg EFFIENT given in lab by Madison Ritter RN via Oral. Ordered by Kenny Yin. Medication (Drip) Medication Time Given Dosage/Unit Concentration/Unit Diluent (ml) Solution AGGRASTAT DRIP 03/31/2018 1:07:44 PM 0.15 mcg/kg/min 12.5 mg 250 NaCl .9 0.15 mcg/kg/min AGGRASTAT DRIP given in lab by Madison Ritter RN via Peripheral IV. Pump/Drip Flow = 17.6 ml/hr using NaCl .9 with a concentration of 12.5 mg in 250 ml. Ordered by Kenny Yin. IV Solutions 03/31/2018 11:56:31 AM 50 mL (IV) 500 NaCl .9 Patient arrived on IV Solutions via Peripheral IV. Pump/Drip Flow using NaCl .9. Initial Case Assessment Cardiovascular HR NIBP Chest Pain 78 132/747 0 Edema Present Skin color Skin None Normal Warm Dry Circulatory - Right Pulses Dorsalis Pedis Femoral 1 3 Scale (0,1,2,3,4,d) Circulatory - Left Pulses Dorsalis Pedis Femoral 1 3 Scale (0,1,2,3,4,d) Neurological State Oriented to time-place- Alert Moves all extremities person Respiration - General Respiration Rate SpO2 (%) (B/min) 20 96 Final Case Assessment Cardiovascular HR Rhythm NIBP Chest Pain 80 sr 145/70 0 Edema Present Skin color Skin None Normal Warm Dry Circulatory - Right Pulses Dorsalis Pedis Femoral 1 3 Scale (0,1,2,3,4,d) Circulatory - Left Pulses Dorsalis Pedis Femoral 1 3 Scale (0,1,2,3,4,d) Neurological State Oriented to time-place- Alert Moves all extremities person Respiration - General Respiration Rate SpO2 (%) O2 (lpm) (B/min) 18 99 0 Chronological Log Time Study Chronological Log 11:54:48 Patient arrived via Bed. 11:54:51 Patient Name, D.O.B, / Armband Verified By R.N. 11:54:52 Consent signed by the physician and the patient and verified by the Manager Office staff. 11:54:56 Verbal Stimulation=2 Physical Stimulation=2 Airway=2 Respiration=2 TOTAL=8. (0=absent, 1=li mited, 2=present) Vitals capture started with the following parameters, Patient=Adult, Interval=5 min, Initial Pr ktdsql=169 mmHg, 11:55:20 Deflation Rate=5 mmHg, Cuff placed on Right Arm 11:55:56 Patient has been NPO for More than 6Hrs. 11:55:57 Skin Breakdown-ok 11:56:09 HR=81 bpm, TSQF=464/74 mmhg, SpO2=96.0 %, Resp=16 B/min, Pain=0, Jessica=10, Jiménez=2 11:56:11 A # 20 IV was noted in the Antecubital (left). Grade = 0 11:56:31 Patient arrived on IV Solutions via Peripheral IV. Pump/Drip Flow using NaCl .9. Assessment: Initial Case, HR=78 BPM, HYNI=294/747 mmhg, Chest Pain=0, Edema=None, Color=Normal, Skin = Warm, Dry Right Pulses: Shawn Ped=1, Femoral=3 11:57:49 Left Pulses: Shawn Ped=1, Femoral=3 Neurological: State=Alert, Ox3, BOTELLO Respiration: Resp=20 B/min, SpO2=96 % 12:00:58 HR=80 bpm, WLII=229/64 mmhg, SpO2=96.0 %, Resp=14 B/min, Pain=0, Jessica=10, Jiménez=2 12:05:59 HR=78 bpm, NCGG=825/68 mmhg, SpO2=96.0 %, Resp=19 B/min, Pain=0, Jessica=10, Jiménez=2 12:06:08 Reference ECG taken 12:08:54 notified lab ready 12:11:00 HR=81 bpm, WNHC=386/60 mmhg, SpO2=95.0 %, Resp=14 B/min, Pain=0, Jessica=10, Jiménez=2 12:13:17 Pressure channel 2 zeroed. 12:15:59 HR=79 bpm, NQXD=450/72 mmhg, SpO2=95.0 %, Resp=13 B/min, Pain=0, Jessica=10, Jiménez=2 12:16:33 heparin drip was discontinued at 11 30 12:21:00 HR=78 bpm, UGKF=885/63 mmhg, SpO2=96.0 %, Resp=11 B/min, Pain=0, Jessica=10, Jiménez=2 12:26:01 HR=77 bpm, MZGL=098/63 mmhg, SpO2=95.0 %, Resp=12 B/min, Jiménez=2 12:30:48 MD arrived. 12:31:00 HR=80 bpm, HPWI=757/67 mmhg, SpO2=96.0 %, Resp=20 B/min 12:31:03 1 mg VERSED given in lab by Madison Ritter RN via Peripheral IV. 12:34:21 25 mcg FENTANYL given in lab by Madison Ritter RN via Peripheral IV. 12:36:01 HR=77 bpm, AOGA=513/63 mmhg, SpO2=97.0 %, Resp=13 B/min, Jiménez=2 Time Out. Correct patient, correct procedure, correct physician, labs, allergies, and equipment verified with laborer filter plant 12:37:30 team present. Fire risk assesment completed (see hard stop sheet for coding). Time Out Conc urred by MD and individual staff in procedure. 12:37:42 Presedation re-assessment performed by Manager Office RN. 12:37:43 Case Start 12:37:45 Verbal Stimulation=2 Physical Stimulation=2 Airway=2 Respiration=2 TOTAL=8. (0=absent, 1=li mited, 2=present) 20 mL 1% XYLOCAINE given in lab by Kenny Yin in Right Groin via Subcutaneous. Ordered by Humphrey, 12:37:58 Kenny. 12:39:20 Access site was Right Femoral Artery. 12:39:26 A SHEATH, FR4 TERUMO (10CM) FR 4 was advanced into the Fem Art (right) using the Percutaneo us technique. A JR 4.0 INFINITI CATHETER FR 4 was advanced over a wire. OMNIPAQUE, 350 MG, 150ML 150ML was us ed for 12:39:37 injections. 12:40:13 Activated Clotting Time Drawn 12:40:58 HR=78 bpm, UBUD=897/70 mmhg, SpO2=96.0 %, Resp=10 B/min, Jiménez=2 Recorded Pressure: LV, HR=79, Condition=Condition 1 12:41:08 (Left Ventricle) LV 133/5/20 12:41:18 The LV was manually injected with 10 cc's and visualized. OMNIPAQUE, 350 MG, 150ML 150ML us ed. Recorded Pressure: LV, Ao, HR=80, Condition=Condition 1 12:41:33 (Left Ventricle) LV 136/8/21, (Aorta) Ao 136/67/98 12:41:44 The RCA was injected and visualized at various angles. OMNIPAQUE, 350 MG, 150ML 150ML used . 12:42:08 Catheter was removed A JL 4.0 INFINITI CATHETER FR 4 was advanced over a wire. OMNIPAQUE, 350 MG, 150ML 150ML was us ed for 12:42:10 injections. 12:42:30 The LCA was injected and visualized at various angles. OMNIPAQUE, 350 MG, 150ML 150ML used . 12:42:38 ACT (Normal Range 90-180) = 135 12:46:01 HR=83 bpm, UNTZ=957/69 mmhg, SpO2=96.0 %, Resp=10 B/min, Jiménez=2 12:48:00 Catheter was removed A SHEATH, FR6.5 PRELUDE 11CM FR 6.5 was exchanged in the Fem Art (right). This was necessary in order to 12:48:15 accomodate a larger catheter. 12:49:19 6800 units HEPARIN given in lab by Madison Ritter RN via Peripheral IV. Ordered by Kenny Ramon. A XB 4.0 GUIDE CATHETER FR 6 was advanced over a wire. OMNIPAQUE, 350 MG, 150ML 150ML was used for 12:50:06 injections. 12:50:38 A WIRE, ASAThe Society PROWATER 180CM 180CM was inserted via Fem Art (right). 12:51:03 HR=80 bpm, XRRP=511/75 mmhg, SpO2=96.0 %, Resp=12 B/min, Jiménez=2 12:51:37 OMNIPAQUE, 350 MG, 150ML 150ML and 30 MADHURI INDEFLATOR added. 12:53:23 Interventional wire has crossed the lesion An STENT, 3.0 12 INTEGRITY 3.0 12 Bare Metal Stent was inserted through a XB 4.0 GUIDE CATHETER FR 6 over a 12:54:02 WIRE, ASAHI PROWATER 180CM 180CM. A STENT, 3.0 12 INTEGRITY 3.0 12 was deployed using a 30 MADHURI INDEFLATOR at 9 atmospheres for 10 seconds in the 12:54:35 CIRC Prox. 12:56:02 HR=81 bpm, ZVWC=185/75 mmhg, SpO2=96.0 %, Resp=15 B/min, Jiménez=2 12:56:33 Delivery device removed A BALLOON, 3.0 X 8MM NC EUPHORA 8MM was inserted over WIRE, ASAHI PROWATER 180CM 180CM via the CIRC 12:58:57 Prox. A BALLOON, 3.0 X 8MM NC EUPHORA 8MM over a WIRE, ASAHI PROWATER 180CM 180CM in the CIRC Prox wa s 12:59:13 inflated using a 30 MADHURI INDEFLATOR at 14 madhuri for 22 sec. 13:01:05 HR=81 bpm, QGJR=494/69 mmhg, SpO2=96.0 %, Resp=13 B/min, Jiménez=2 13:03:00 Balloon Removed. 13:04:02 Wire removed 13:04:04 Catheter was removed 13:05:38 49 mL AGGRASTAT BOLUS given in lab by Madison Ritter, CLEMENTE via Peripheral IV. Ordered by Kenny Siddiqui. 13:06:04 HR=78 bpm, YYPR=315/78 mmhg, SpO2=97.0 %, Resp=15 B/min, Jiménez=2 0.15 mcg/kg/min AGGRASTAT DRIP given in lab by Madison Ritter, CLEMENTE via Peripheral IV. Pump/Dri p Flow = 17.6 13:07:44 ml/hr using NaCl .9 with a concentration of 12.5 mg in 250 ml. Ordered by Kenny Yin. 13:09:58 Catheter(s) removed without difficulty Assessment: Final Case, HR=80 BPM, Rhythm=sr, DHYO=196/70 mmhg, Chest Pain=0, Edema=None, Color =Normal, Skin = Warm, Dry Right Pulses: Shawn Ped=1, Femoral=3 13:10:00 Left Pulses: Shawn Ped=1, Femoral=3 Neurological: State=Alert, Ox3, BOTELLO Respiration: Resp=18 B/min, SpO2=99 %, O2=0 lpm 13:10:40 60 mg EFFIENT given in lab by Madison Ritter, CLEMENTE via Oral. Ordered by Kenny Yin. 13:11:05 HR=79 bpm, SBYU=920/70 mmhg, SpO2=99.0 %, Resp=13 B/min, Jiménez=2 13:11:11 ACT (Normal Range 90-180) = 304 13:16:06 HR=79 bpm, TKEQ=077/85 mmhg, SpO2=99.0 %, Resp=13 B/min, Jiménez=2 13:20:50 Vitals capture stopped. End Study - Contrast Media Used In Study Contrast Total Opened (mL) Total Used (mL) Total Wasted (mL) Omnipaque 90 90 0 End Study - Maximum Contrast Load Max Contrast Load (mL) 697.7 End Study - Radiation Exposure Fluoro Time Fluoro Dose (mGy) Cine Dose (uGym2) (minutes) 7.3 0004 6562 End Study - Patient Disposition Complications Transferred To Interventional Outcome No Telemetry Bed successful
--- NOTE | 2018-03-31 13:57 | MA ---
cc: Kenny Yin MD DATE: 03/31/2018 PROCEDURE: Left heart catheterization, left ventriculography, coronary angiography, PCI with bare metal stent of the proximal left circumflex vessel INDICATIONS: Unstable angina, [place] Cardiovascular Society Class IV angina, coronary artery disease. PROCEDURE: The patient was brought to the cardiac catheterization laboratory, prepped and draped in the usual sterile fashion; 10 mL of 1% lidocaine was used to locally anesthetize the right common femoral artery. A 4-[place] sheath was placed in the right common femoral artery. A 4-[place] JR4 and JL4 catheters were used to perform left and right coronary angiography, left ventriculography. FINDINGS: LV pressure 135/3-9. EF 60%. The right coronary artery is dominant. There is mild disease of the proximal segment up to 30% angiographically; also, in the distal segment, there is a focal 20%-30% stenosis. Left main coronary artery has no significant disease angiographically. The left circumflex vessel has a proximal 95% stenosis. The LAD has a proximal 60%-70% stenosis to transapical vessel. The stenosis is at the bifurcation with a small 1.75 mm - 2.0 mm diagonal vessel. The LAD itself is a relatively small vessel, probably 2.5 mm reference vessel diameter. DISCUSSION: The left circumflex vessel lesion appears to be the culprit lesion. It is very difficult to image the LAD in the AP cranial view due to significant vessel overlap. The AP cranial views demonstrate the most degree of stenosis of the proximal LAD; maybe up to 75%; however, again, the left circumflex has a 95% stenosis. The patient lives in [place]. I discussed with, her options of provisionally stenting the proximal left circumflex. If she still has chest pain, we will need to consider PCI versus single vessel CABG of the LAD. The lesion in the proximal LAD actually spans 2 small diagonal vessels so it would be a fairly complex intervention. The patient's initial ACT was 134. The 4-[place] sheath was exchanged for a 6-[place] sheath; 70 units/kg of heparin was given; ACT of 303. A 6-[place] XB 4.0 guide and a 0.014 Prowater guidewire were used to cross the proximal left circumflex vessel stenosis. The lesion was directly stented with a 3.0 12 Integrity stent with one inflation 10 atmospheres for 20 seconds. Note, there was significant under-deployment of the mid stent and therefore I took a 3.0 x 8 noncompliant Euphora balloon; post-dilated the stent to 14 atmospheres. Stenosis went from 95% to 0% with ASHLEY 3 flow. Also noted during balloon inflations and stent balloon inflation, this did reproduce the patient's symptoms of her typical angina. The patient was completely chest pain at the end of the procedure. CONCLUSION: 1. Unstable angina; [place] Cardiovascular Society Class IV angina culprit 95% stenosis in the proximal left circumflex vessel. 2. A 70%-75% stenosis in the proximal left anterior descending, spanning 2 small 1.5 mm - 2.0 mm diagonal vessels with a reference vessel diameter of the left anterior descending of 2.75 mm. 3. Preserved left ventricular systolic function, ejection fraction 65%. 4. Mild right coronary artery disease in a right dominant system. 5. Successful percutaneous coronary intervention with bare metal stent of the proximal left circumflex from 95% to 0% with ASHLEY 3 flow. 6. Recommended epi in 60 mg load, then 10 mg daily for 12 to 15 months, aspirin 162 mg daily. Treat the patient with lipids, beta myrtle, EULA inhibitors as clinically and hemodynamically tolerated. We will reassess the patient's symptoms tomorrow. If the patient is still having chest pain, we will need to consider percutaneous coronary intervention of the proximal left anterior descending versus left interior mammary artery to the left anterior descending. MD RYNE Chambers/catia , 01:16 PM , 01:27 PM
[2018-03-31] MEDS ORDERED: Tirofiban Inj 12,500 MCG/250 ML PLAST..BAG IV.CONT SCH (15:00)
[2018-03-31] MEDS ORDERED: Tirofiban Bolus 2,450 MCG in Syringe/Bag 1 EACH IV.SIG ONE (15:00)
--- NOTE | 2018-03-31 15:05 | P.PNIM ---
Subjective Interval history: No chest pain overnight, status post cardiac catheterization, patient has 70-75% stenosis in the proximal left anterior descending, status post BMS of proximal left circumflex. Physical Exam Vital signs: Vital Signs 03/30/18 15:37 03/30/18 16:00 03/30/18 17:00 Temperature 98.7 F Pulse Rate 74 74 82 Respiratory Rate 17 Blood Pressure 125/66 Pulse Oximetry 98 03/30/18 18:00 03/30/18 18:30 03/30/18 19:00 Temperature Pulse Rate 86 80 Respiratory Rate 19 Blood Pressure Pulse Oximetry 03/30/18 20:00 03/30/18 21:00 03/30/18 21:27 Temperature Pulse Rate 83 78 Respiratory Rate 20 Blood Pressure 131/70 Pulse Oximetry 97 98 03/30/18 22:00 03/30/18 23:00 03/30/18 23:42 Temperature Pulse Rate 86 78 Respiratory Rate 16 Blood Pressure Pulse Oximetry 03/31/18 00:00 03/31/18 00:30 03/31/18 01:00 Temperature Pulse Rate 74 72 Respiratory Rate 16 16 Blood Pressure 113/56 L Pulse Oximetry 98 03/31/18 02:00 03/31/18 03:00 03/31/18 04:00 Temperature Pulse Rate 70 86 83 Respiratory Rate 16 Blood Pressure 123/65 Pulse Oximetry 98 03/31/18 05:00 03/31/18 06:00 03/31/18 07:00 Temperature Pulse Rate 70 72 69 Respiratory Rate Blood Pressure Pulse Oximetry 03/31/18 08:00 03/31/18 09:00 03/31/18 10:00 Temperature 98.6 F Pulse Rate 90 68 62 Respiratory Rate 16 Blood Pressure 124/79 Pulse Oximetry 98 03/31/18 11:00 Temperature Pulse Rate 70 Respiratory Rate Blood Pressure Pulse Oximetry Intake & Output 03/30/18 03/31/18 03/31/18 18:59 06:59 18:59 Intake Total 1190 / 1190 1730 / 1730 50 / 50 Output Total 2650 / 2650 1300 / 1300 Balance -1460 / -1460 430 / 430 50 / 50 Weight 97.7 kg Intake: IV 100 / 100 1250 / 1250 50 / 50 Heparin/D5W 25,000 U/250 mL 25, 100 / 100 250 / 250 50 / 50 000 unit In 250 ml @ Per Protocol IV.CONT TITRATE PRN Rx #:[id number] NS Inj 1,000 ML @ 100 mls/hr IV 1000 / 1000 .CONT .Q10H JUSTINO Rx#:[id number] Oral 1090 / 1090 480 / 480 Output: Urine 2650 / 2650 1300 / 1300 Other: # Voids 4 Date of Last Bowel Movement 03/29/18 03/29/18 Narrative: Not in distress Pupils equal round reactive Kamiah conjunctivae Anicteric Regular rate and rhythm, no murmurs Clear breath sounds Abdomen soft nontender No edema Alert awake and oriented x3, no focal deficits. Results Labs CBC & Chem 7: 03/31/18 09:46 03/31/18 00:25 Procedures Procedures: 04/01: , status post cardiac catheterization, left circumflex vessel 95% stenosis, status post bare-metal stenting. Assessment and Plan (1) HTN (hypertension): Code(s): I10 - Essential (primary) hypertension Status: Acute (2) ACS (acute coronary syndrome): Code(s): I24.9 - Acute ischemic heart disease, unspecified Status: Acute Plan This is a 67-year-old female with no significant past medical history but with significant family history of cardiac illness, father at 35 from [place] presenting with chest pain for 1 day. Unstable angina- patient has strong family history, patient at 37 years old of [place]. Recent abnormal Stress Test 01/2018 back home in [place], now w/ ongoing chest pain, reproducible on chest palpation, cardiology consulted, recommendation for Heparin gtt, troponin negative x2, EKG negative, showed sinus rhythm, normal axis, no ischemia. Continue nitroglycerin, morphine as needed. Continue aspirin, statin and metoprolol. LDL 131. CTA negative for PE. Patient even with negative EKG and cardiac enzymes, status post cardiac catheterization, left circumflex vessel 95% stenosis, status post bare-metal stenting. There is a 70-75% stenosis of the proximal left anterior descending. Started ramipril and Effient. Monitor. Hypertension-continue metoprolol. DVT prophylaxis: Heparin Discharge once cleared by cardiology. Progress Note: Quality VTE Deep Vein Thrombosis/Pulmonary Embolism Present on Admission: No _ (1) HTN (hypertension) Qualifiers: Hypertension type:
--- NOTE | 2018-03-31 15:17 | ECG ---
Date Performed: 03/30/2018 Time Performed: 19:32:40 PTAGE: 67 years EKG: Sinus rhythm . Left axis deviation Borderline ECG Since PREVIOUS TRACING , no significant change noted PREVIOUS TRACIN03/29/2018 02.11.04 DOCTOR: Tommie Aguilar Interpretating Date/Time 03/31/2018 15:15:21
[2018-04-01] MEDS: Sod Chloride 0.9% Inj 1,000 ML IV.CONT SCH (01:10)
[2018-04-01] MEDS: Morphine Sulfate Inj 2 MG/ML Vial IV.PUSH PRN ×4 (01:41→19:33)
[2018-04-01 05:34] LABS: Baso % (Auto) 0.5 % (0.0-2.0); Eos # (Auto) 0.2 th/mm3 (0.0-0.4); Eos % (Auto) 2.3 % (0.0-4.0); Hematocrit 34.4 % (35.0-46.0); Hemoglobin 11.7 gm/dL (11.6-15.3); Lymph # (Auto) 2.2 th/mm3 (1.0-4.8); Lymph % (Auto) 29.9 % (9.0-44.0); Mean Corpuscular HGB Conc 34.1 % (32.0-36.0); Mean Corpuscular Hemoglobin 28.7 pg (27.0-34.0); Mean Corpuscular Volume 84.2 fL (80.0-100.0); Mean Platelet Volume 7.9 fL (7.0-11.0); Mono # (Auto) 0.5 th/mm3 (0.0-0.9); Mono % (Auto) 6.3 % (0.0-8.0); Neut # (Auto) 4.5 th/mm3 (1.8-7.7); Platelet Count 270 th/mm3 (150-450); Red Blood Count 4.08 mil/mm3 (4.00-5.30); Red Cell Distribution Width 14.3 % (11.6-17.2); White Blood Count 7.4 th/mm3 (4.0-11.0)
[2018-04-01 05:55] LABS: Anion Gap 7 meq/L (5-15); Blood Urea Nitrogen 6 mg/dL (7-18); Calcium 8.3 mg/dL (8.5-10.1); Carbon Dioxide 25.7 meq/L (21.0-32.0); Chloride 113 meq/L (98-107); Cholesterol 172 mg/dL (120-200); Glomerular Filtration Rate Greater Than 89 mL/min (>89); Glucose,Random 100 mg/dL (74-106); Potassium 3.4 meq/L (3.5-5.1); Sodium 146 meq/L (136-145); Triglycerides 90 mg/dL (42-150)
[2018-04-01 05:57] LABS: Chol/HDL Ratio 3.54 Ratio; HDL Cholesterol 48.5 mg/dL (40.0-60.0); LDL Cholesterol,Calculated 106 mg/dL (0-99)
[2018-04-01 06:11] LABS: Creatine Kinase 39 U/L (26-192)
[2018-04-01] MEDS: Ramipril 2.5 MG Capsule PO SCH (08:59)
[2018-04-01] MEDS: Metoprolol Tartrate 25 MG Tablet PO SCH ×2 (08:59→21:12)
[2018-04-01] MEDS: Senna/Docusate Sodium 8.6/50 MG Tablet PO SCH ×2 (10:14→21:12)
[2018-04-01] MEDS: Heparin Drip 25,000 UNIT/250 ML BAG IV.CONT PRN (12:54)
[2018-04-01] MEDS: Acetaminophen 325 MG Tablet PO PRN (13:49)
[2018-04-01] MEDS ORDERED: Heparin/NS PF Inj 1,000 ML ONE (14:48)
[2018-04-01] MEDS ORDERED: fentaNYL Citrate Inj 100 MCG/2 ML Ampul ONE (14:55)
[2018-04-01] MEDS ORDERED: Heparin 10,000 UNITS/10 ML Vial (for IV use) ONE (15:46)
[2018-04-01] MEDS ORDERED: Tirofiban Inj 12,500 MCG/250 ML PLAST..BAG ONE (16:05)
--- NOTE | 2018-04-01 16:21 | CATHPROC ---
[employer] HIS Report Study Information Study Number Admission Scheduled Start Study Start [id number] Mar 29 2018 3:35AM 04/01/2018 Apr 01 2018 2:28PM [place] Service Cardiac Catheterization Admit Source Facility Department Other [facility] - Director Dermatology Physician and Clinical Staff Initial [facility] Manager Chris HagerRN Recorder Alexandrea Lee ,RT(R) Scrub Juliet Bunch,RITO TECH2 Procedures Performed Procedure Location (Site) Vessel Name Coronary Angiograms LCA Left Coronary Stent LAD Prox Left Coronary Wire insertion Fem Art (right) Femoral Art Equipment Time Customer Service Clerk Description Size Mfg Part Number Used/Scraped [id number] 15:44 ASAHI INTECC WIRE, ASAHI PROWATER 180CM 180CM Used *[id number] TRANSDUCER, TRUWAVE [id number] 14:31 ALCARAZ SHRESTHA * Used W/STOCKCOCK *[id number] *[id number] 14:31 e-Zassi BLANKET,WARM AIR CCL * Used *[id number] 14:31 e-Zassi PACK, CCL CUSTOM * Used *[id number] 14:31 [employer] PACER PEN, SKIN DUAL W/ RULER * Used *[id number] 15:50 MEDTRONIC STENT, 3.0 15 INTEGRITY 3.0 15 Used *[id number] 15:51 Pivot[employer]k 30 MADHURI INDEFLATOR Used *[id number] 14:33 [employer]k SHEATH, FR6.5 PRELUDE 11CM FR 6.5 038ACT Used *[id number] 14:31 [employer] WIRE, 3MMJ .035 180CM 180CM Used *[id number] 14:31 NAMIC MANIFOLD, 4 PORT * Used *[id number] 14:31 NYCOMED OMNIPAQUE, 350 MG, 150ML 150ML [id number] Used Equipment Model, Serial, Lot Number and Expiration Data Description Model Number Serial Number Lot Number Expiration Date STENT, 3.0 15 INTEGRITY [id number] 07-10-2019 WIRE, ASAHI PROWATER 180CM [id number] 07-11-2020 History: Current Medications Medication Dosage/Unit Route Frequency Last Date/Time Taken Statins (any) ASA EFFIENT History: Allergies Allergy Reaction No Known Allergies History: Risk Factors Family History of Hypertension Dyslipidemia Previous ID Previous Heart Failure Premature CAD No No No No No Prior Valve Prior PCI Prior PCIDate Prior CABG Surgery No Yes 03/31/2018 No Cerebrovascular Peripheral Artery Chronic Lung On Dialysis Diabetes Disease Disease Disease No No No No No History: Stress Tests Stress or Imaging Studies Performed No History: Other Current Smoker No Labs Hgb (g/dl) Hct (%) WBC (l/cumm) Platelets (thousands) 11.60-17.00 35.00-51.00 4.00-11.00 150.00-450.00 11.7 34.4 7.4 270 Glucose (mg/dl) BUN (mg/dl) Creatinine (mg/dl) BUN:Creatinine (1:x) 74.00-106.00 7.00-18.00 0.50-1.30 10.00-20.00 100 6 0.6 10 Na (meq/l) K (meq/l) 136.00-145.00 3.50-5.10 146 3.4 CPK-MB (ng/ML) 0.50-3.60 Not Drawn Medication Medication Total Dose (Bolus/Oral) Medication Total Dosage/Unit 1% XYLOCAINE 20 mL AGGRASTAT BOLUS 48.5 meq/kg FENTANYL 50 mcg HEPARIN 6800 units VERSED 1 mg Medications (Bolus/Oral) Medication Time Given Dosage/Unit Administered By Reason VERSED 04/01/2018 3:36:03 PM 1 mg AlleyChris 1 mg VERSED given in lab by Chris Hager RN in Left Antecubital via Peripheral IV. Ordered by Kenny Hogan. FENTANYL 04/01/2018 3:37:10 PM 25 mcg Alley Chris 25 mcg FENTANYL given in lab by Chris Hager RN in Left Antecubital via Peripheral IV. Ordered by Kenny Siddiqui. 1% XYLOCAINE 04/01/2018 3:41:14 PM 20 mL Kenny Yin 20 mL 1% XYLOCAINE given in lab by Kenny Yin in Right Groin via Subcutaneous. Ordered by Kenny Ramon. HEPARIN 04/01/2018 3:48:30 PM 6800 units Kenny Yin 6800 units HEPARIN given in lab by Kenny Yin via Peripheral IV. Ordered by Kenny Yin. FENTANYL 04/01/2018 3:57:58 PM 25 mcg Chris Hager 25 mcg FENTANYL given in lab by Chris Hager RN via Peripheral IV. Ordered by Kenny Yin. AGGRASTAT BOLUS 04/01/2018 4:09:00 PM 48.5 meq/kg Chris Hager 48.5 meq/kg AGGRASTAT BOLUS given in lab by Chris Hager RN via Peripheral IV. Amount given = 4704.5 meq. Ordered by Kenny Yin. Medication (Drip) Medication Time Given Dosage/Unit Concentration/Unit Diluent (ml) Solution AGGRASTAT DRIP 04/01/2018 4:12:00 PM 0.15 mcg/kg/min 12.5 mg 250 NaCl .9 0.15 mcg/kg/min AGGRASTAT DRIP given in lab by Chris Hager RN via Peripheral IV. Pump/Drip Flow = 1 7.5 ml/hr using NaCl .9 with a concentration of 12.5 mg in 250 ml. Ordered by Kenny Yin. IV Solutions 04/01/2018 2:41:36 PM 50 mL (IV) NaCl .9 Patient arrived on IV Solutions via Peripheral IV. Pump/Drip Flow using NaCl .9. Initial Case Assessment Cardiovascular HR NIBP Chest Pain 78 154/73 0 Edema Present Skin color Skin None Normal Warm Dry Circulatory - Right Pulses Dorsalis Pedis Femoral 3 3 Scale (0,1,2,3,4,d) Circulatory - Left Pulses Dorsalis Pedis Femoral 3 3 Scale (0,1,2,3,4,d) Neurological State Oriented to time-place- Alert Moves all extremities person Respiration - General Respiration Rate SpO2 (%) (B/min) 13 97 Final Case Assessment Cardiovascular HR NIBP Chest Pain 78 166/79 0 Edema Present Skin color Skin None Normal Warm Dry Circulatory - Right Pulses Dorsalis Pedis Femoral 3 3 Scale (0,1,2,3,4,d) Circulatory - Left Pulses Dorsalis Pedis Femoral 3 3 Scale (0,1,2,3,4,d) Neurological State Oriented to time-place- Alert Moves all extremities person Respiration - General Respiration Rate SpO2 (%) (B/min) 13 97 Chronological Log Time Study Chronological Log 14:41:08 Patient arrived via Bed. 14:41:09 Patient Name, D.O.B, / Armband Verified By R.N. 14:41:14 Consent signed by the physician and the patient and verified by the Director Dermatology staff. 14:41:20 Pre-op and post- op instructions given; patient acknowledges understanding of instructions. 14:41:20 Verbal Stimulation=2 Physical Stimulation=2 Airway=2 Respiration=2 TOTAL=8. (0=absent, 1=li mited, 2=present) 14:41:24 Immediate Presedation assesment performed by physician. 14:41:29 Patient has been NPO for More than 6Hrs. 14:41:31 Skin Breakdown- none per patient 14:41:32 Patient Warmer Placed on the Table. 14:41:34 Naant Prominences Protected 14:41:35 A # 20 IV was noted in the Antecubital (left). Grade = 0 14:41:36 Patient arrived on IV Solutions via Peripheral IV. Pump/Drip Flow using NaCl .9. 14:41:36 History and physical on the chart or being dictated. Assessment: Initial Case, HR=78 BPM, LDBC=745/73 mmhg, Chest Pain=0, Edema=None, Color=Normal, Skin = Warm, Dry Right Pulses: Shawn Ped=3, Femoral=3 14:41:37 Left Pulses: Shawn Ped=3, Femoral=3 Neurological: State=Alert, Ox3, BOTELLO Respiration: Resp=13 B/min, SpO2=97 % Vitals capture started with the following parameters, Patient=Adult, Interval=5 min, Initial Pr osibsm=098 mmHg, 14:47:13 Deflation Rate=5 mmHg, Cuff placed on Right Limb 14:47:56 HR=77 bpm, MXDJ=965/73 mmhg, SpO2=98.0 %, Resp=13 B/min, Pain=0, Jessica=10, Jiménez=2 14:48:35 Reference ECG taken 14:52:58 HR=76 bpm, IHXN=803/74 mmhg, SpO2=98.0 %, Resp=12 B/min, Pain=0, Jessica=10, Jiménez=2 14:54:42 Bilateral groins prepped with 2% chlorhexidine, and draped after a 3 minute waiting time. 14:57:57 HR=75 bpm, CBIK=622/80 mmhg, SpO2=96.0 %, Resp=15 B/min, Pain=0, Jessica=10, Jiménez=2 14:59:04 Pressure channel 1 zeroed. 14:59:16 MD paged 15:02:58 HR=75 bpm, OXTK=230/70 mmhg, SpO2=96.0 %, Resp=13 B/min, Pain=0, Jessica=10, Jiménez=2 15:03:56 MD responded 15:07:57 HR=75 bpm, IUZI=657/71 mmhg, SpO2=96.0 %, Resp=15 B/min, Pain=0, Jessica=10, Jiménez=2 15:12:54 HR=73 bpm, RUAT=546/77 mmhg, SpO2=96.0 %, Resp=13 B/min, Pain=0, Jessica=10, Jiménez=2 15:17:55 HR=75 bpm, PZPA=521/82 mmhg, SpO2=96.0 %, Resp=11 B/min, Pain=0, Jessica=10, Jiménez=2 15:22:58 HR=75 bpm, FJMK=814/75 mmhg, SpO2=97.0 %, Resp=13 B/min, Pain=0, Jessica=10, Jiménez=2 15:27:55 HR=71 bpm, KZLC=058/82 mmhg, SpO2=96.0 %, Resp=13 B/min, Pain=0, Jessica=10, Jiménez=2 15:32:56 HR=73 bpm, YBZI=509/79 mmhg, SpO2=96.0 %, Resp=12 B/min, Pain=0, Jessica=10, Jiménez=2 15:33:49 MD notified again 15:35:59 MD responded 15:36:03 1 mg VERSED given in lab by Chris Hager RN in Left Antecubital via Peripheral IV. Ordered by Kenny Yin. 15:37:10 25 mcg FENTANYL given in lab by Chris Hager RN in Left Antecubital via Peripheral IV. Ord ered by Kenny Yin. 15:37:59 HR=76 bpm, XPHV=797/77 mmhg, SpO2=94.0 %, Resp=16 B/min, Pain=0, Jessica=10, Jiménez=2 15:38:15 MD arrived. Time Out. Correct patient, correct procedure, correct physician, labs, allergies, and equipment verified with label coder 15:40:04 team present. Fire risk assesment completed (see hard stop sheet for coding). Time Out Conc urred by MD and individual staff in procedure. 15:41:12 Case Start 20 mL 1% XYLOCAINE given in lab by Kenny Yin in Right Groin via Subcutaneous. Ordered by Humphrey, 15:41:14 Kenny. 15:42:10 Access site was Right Femoral Artery. 15:42:47 A SHEATH, FR6.5 PRELUDE 11CM FR 6.5 was advanced into the Fem Art (right) using the Percuta neous technique. 15:42:56 HR=70 bpm, YXFC=421/80 mmhg, SpO2=95.0 %, Resp=13 B/min, Pain=0, Jessica=10, Jiménez=2 15:43:00 Activated Clotting Time Drawn A XB 4.0 GUIDE CATHETER FR 6 was advanced over a wire. OMNIPAQUE, 350 MG, 150ML 150ML was used for 15:43:11 injections. Recorded Pressure: Ao, HR=74, Condition=Condition 1 15:43:33 (Aorta) Ao 147/68/102 15:45:07 The LCA was injected and visualized at various angles. OMNIPAQUE, 350 MG, 150ML 150ML used . 15:45:24 ACT (Normal Range 90-180) = 122 15:47:47 A WIRE, ASAHI PROWATER 180CM 180CM was inserted via Fem Art (right). 15:47:59 HR=76 bpm, IINI=653/78 mmhg, SpO2=92.0 %, Resp=14 B/min, Pain=0, Jessica=10, Jiménez=2 15:48:30 6800 units HEPARIN given in lab by Kenny Yin via Peripheral IV. Ordered by Kenny Yin. 15:49:32 Interventional wire has crossed the lesion An STENT, 3.0 15 INTEGRITY 3.0 15 Bare Metal Stent was inserted through a XB 4.0 GUIDE CATHETER FR 6 over a 15:51:00 WIRE, ASAHI PROWATER 180CM 180CM. A STENT, 3.0 15 INTEGRITY 3.0 15 was deployed using a 30 MADHURI INDEFLATOR at 10 atmospheres for 1 5 seconds in 15:52:48 the LAD Prox. 15:53:00 HR=76 bpm, ZVQK=217/77 mmhg, SpO2=94.0 %, Resp=14 B/min, Pain=0, Jessica=10, Jiménez=2 15:53:27 Delivery device removed 15:55:05 Wire removed 15:55:09 Catheter was removed 15:55:40 Case End (Physician broke scrub) Assessment: Final Case, HR=78 BPM, IKFF=355/79 mmhg, Chest Pain=0, Edema=None, Color=Normal, Sk in = Warm, Dry Right Pulses: Shawn Ped=3, Femoral=3 15:57:48 Left Pulses: Shawn Ped=3, Femoral=3 Neurological: State=Alert, Ox3, BOTELLO Respiration: Resp=13 B/min, SpO2=97 % 15:57:58 25 mcg FENTANYL given in lab by Chris Hager, RN via Peripheral IV. Ordered by Edwin Yin. 15:57:59 HR=78 bpm, PZBE=821/79 mmhg, SpO2=95.0 %, Resp=11 B/min, Pain=0, Jessica=10, Jiménez=2 15:58:14 Catheter(s) removed without difficulty 15:58:16 In the Fem Art (right) the SHEATH, FR6.5 PRELUDE 11CM FR 6.[address] by Kenny Hogan. 15:58:23 Sterile dressing applied to site 15:58:23 No case complications noted. 15:58:26 Cine recording checked. 15:58:29 Bedside Report will be given. 15:58:30 Implantable Device card placed in patient's chart. 16:03:04 HR=75 bpm, UEFD=999/76 mmhg, SpO2=94.0 %, Resp=17 B/min, Pain=0, Jessica=10, Jiménez=2 16:04:13 ACT (Normal Range 90-180) = 289 16:07:59 HR=73 bpm, COME=170/82 mmhg, SpO2=95.0 %, Resp=10 B/min, Pain=0, Jessica=10, Jiménez=2 48.5 meq/kg AGGRASTAT BOLUS given in lab by Chris Hager, RN via Peripheral IV. Amount given = 4704.5 meq. 16:09:00 Ordered by Kenny Yin. 16:09:18 Vitals capture stopped. 16:09:25 Patient moved to stretcher 0.15 mcg/kg/min AGGRASTAT DRIP given in lab by Chris Hager RN via Peripheral IV. Pump/Drip Fl ow = 17.5 ml/hr 16:12:00 using NaCl .9 with a concentration of 12.5 mg in 250 ml. Ordered by Kenny Yin. End Study - Contrast Media Used In Study Contrast Total Opened (mL) Total Used (mL) Total Wasted (mL) Omnipaque 80 80 0 End Study - Maximum Contrast Load Max Contrast Load (mL) 808.3 End Study - Radiation Exposure Fluoro Time Fluoro Dose (mGy) Cine Dose (uGym2) (minutes) 2.7 1781 8472 End Study - Patient Disposition Complications Transferred To Interventional Outcome No Critical Care Bed successful
--- NOTE | 2018-04-01 16:27 | MR ---
cc: Kenny Yin MD DATE: 04/01/2018 PROCEDURE: Direct percutaneous coronary intervention with bare metal stent of the proximal left anterior descending. INDICATIONS: Unstable angina, [place] Cardiovascular Society Class IV angina, coronary artery disease, known 80% stenosis in the proximal left anterior descending. PROCEDURE: The patient was brought to the cardiac catheterization laboratory, prepped and draped in the usual sterile fashion. Then, 10 mL of 1% lidocaine was used to locally anesthetize the right common femoral artery. A 6-[place] sheath was placed in the right common femoral artery, 70 units/kg of heparin was given. A 6-[place] XB 4.0 guide and 0.014 guidewire was placed into the distal LAD. Note, the proximal LAD lesion was very complex as it was in between 2 small to medium sized diagonal vessels, neither of which had any ostial disease. Plaque was most concentrated in between the lesions; however, there was some degree of plaque at the diagonals as well. I directly placed a 3.0 15 Integrity stent at the lesion site, deployed. Prior to deployment, the patient's angina began to develop again. The angina that intensified when the stent balloon went up. Deployed the stent to 10 atmospheres for 20 seconds. Stenosis went from 80% to 0% with ASHLEY-3 flow. There was no compromise in flow or vessel diameter at the ostium of the diagonal vessels, which were both spanned by the stent. CONCLUSION: 1. Unstable angina, [place] Cardi[employer] Society Class IV angina despite stenting the diagonal vessel on 03/31/2018 with residual 80% stenosis in the proximal LAD as detailed above. 2. Successful direct PCI bare metal stent of the proximal LAD from 80% to 0% with ASHLEY-3 flow. 3. Recommend continue Effient 10 mg daily, aspirin 162 mg daily. We will administer Aggrastat bolus and drip per protocol. The final ACT was 289. Kenny Yin MD AWC/ts , 04:04 PM , 04:11 PM
[2018-04-01] MEDS ORDERED: Iohexol 350 MG/ML 100 ML Vial (for Cath Lab) IVCONTRAST ONE (16:43)
[2018-04-01] MEDS ORDERED: Misc Info for Pharmacy OTHER STA ×2 (18:04→18:05)
[2018-04-01] MEDS ORDERED: TIROFIBAN BOLUS IV.SIG ONE (18:05)
[2018-04-01] MEDS ORDERED: Sodium Chloride 0.45 % Inj 1,000 ML IV.CONT SCH (18:23)
--- NOTE | 2018-04-01 18:27 | P.PNIM ---
Subjective Interval history: Patient seen following cardiac catheterization. Denies any chest pain currently. Denies any shortness of breath. Physical Exam Vital signs: Vital Signs 03/31/18 19:00 03/31/18 20:00 03/31/18 21:00 Temperature 98.8 F Pulse Rate 91 H 88 84 Respiratory Rate 20 Blood Pressure 120/70 Pulse Oximetry 100 03/31/18 22:00 03/31/18 23:00 04/01/18 00:00 Temperature 98.7 F Pulse Rate 78 79 76 Respiratory Rate 18 Blood Pressure 150/83 H Pulse Oximetry 99 04/01/18 01:00 04/01/18 02:00 04/01/18 03:00 Temperature Pulse Rate 80 83 72 Respiratory Rate Blood Pressure Pulse Oximetry 04/01/18 04:00 04/01/18 05:00 04/01/18 06:00 Temperature 97.9 F Pulse Rate 74 80 82 Respiratory Rate 16 Blood Pressure 134/54 L Pulse Oximetry 98 04/01/18 07:00 04/01/18 07:47 04/01/18 08:00 Temperature 98.1 F Pulse Rate 74 80 70 Respiratory Rate 15 Blood Pressure 125/71 Pulse Oximetry 96 04/01/18 09:00 04/01/18 10:47 04/01/18 11:00 Temperature Pulse Rate 72 66 Respiratory Rate Blood Pressure Pulse Oximetry 93 L 04/01/18 11:03 04/01/18 12:00 Temperature 98.3 F 98.3 F Pulse Rate 65 65 Respiratory Rate 14 14 Blood Pressure 138/67 138/67 Pulse Oximetry 98 98 Intake & Output 03/31/18 04/01/18 04/01/18 18:59 06:59 18:59 Intake Total 1050 / 1050 1730 / 1730 250 / 250 Output Total 2300 / 2300 Balance 1050 / 1050 -570 / -570 250 / 250 Weight 97 kg Intake: IV 1050 / 1050 1250 / 1250 250 / 250 Heparin/D5W 25,000 U/250 mL 25, 50 / 50 000 unit In 250 ml @ Per Protocol IV.CONT TITRATE PRN Rx #:[id number] NS Inj 1,000 ML @ 100 mls/hr IV 1000 / 1000 1000 / 1000 .CONT .Q10H [facility] Rx#:[id number] Aggrastat Inj 12,500 mcg In 250 250 / 250 ml @ Per Protocol IV.CONT .Q0M [facility] Rx#:[id number] Oral 480 / 480 Output: Urine 2300 / 2300 Other: # Voids 4 Date of Last Bowel Movement 03/29/18 03/29/18 03/29/18 Narrative: GENERAL: Patient lying in bed. Appears comfortable. SKIN: Warm and dry. HEAD: Normocephalic. EYES: No scleral icterus. No injection or drainage. NECK: Supple, trachea midline. No JVD. CARDIOVASCULAR: Regular rate and rhythm without murmurs, gallops, or rubs. RESPIRATORY: Breath sounds equal bilaterally. No accessory muscle use. GASTROINTESTINAL: Abdomen soft, non-tender, nondistended. MUSCULOSKELETAL: No cyanosis, or edema. BACK: Nontender without obvious deformity. No CVA tenderness. Results Labs CBC & Chem 7: 04/01/18 04:33 04/01/18 04:33 Procedures Procedures: 04/01: , status post cardiac catheterization, left circumflex vessel 95% stenosis, status post bare-metal stenting. Assessment and Plan (1) HTN (hypertension): Code(s): I10 - Essential (primary) hypertension Status: Acute (2) ACS (acute coronary syndrome): Code(s): I24.9 - Acute ischemic heart disease, unspecified Status: Acute Plan This is a 67-year-old female with no significant past medical history but with significant family history of cardiac illness, father at 35 from [place] presenting with chest pain for 1 day. //Unstable angina- //Coronary artery disease status post PCI on this admission Patient has strong family history, patient at 37 years old of [place]. Recent abnormal Stress Test 01/2018 back home in [place], now w/ ongoing chest pain, reproducible on chest palpation, cardiology consulted,recommendation for Heparin gtt, troponin negative x2, EKG negative, showed sinus rhythm, normal axis, no ischemia. Continue nitroglycerin, morphine as needed. Continue aspirin, statin and metoprolol. LDL 131. CTA negative for PE. Patient even with negative EKG and cardiac enzymes, status post cardiac catheterization, left circumflex vessel 95% stenosis, status post bare-metal stenting. There is a 70-75% stenosis of the proximal left anterior descending. Started ramipril and Effient. Monitor. = 04/01. Status post cardiac catheterization with PCI. Please see report. Continue medications as per cardiology. Hopefully discharge home tomorrow if doing well and cleared by cardiology. //Hypernatremia. Sodium 146. Switch to half-normal saline and recheck tomorrow. //Hypertension-continue metoprolol. -Blood pressure acceptable on current regimen. Continue to monitor. DVT prophylaxis: SCDs. anticoagulation as per cardiology. On anticoagulation as per cardiology. Discharge once cleared by cardiology. Progress Note: Quality VTE Deep Vein Thrombosis/Pulmonary Embolism Present on Admission: No _ (1) HTN (hypertension) Qualifiers: Hypertension type:
[2018-04-01] MEDS ORDERED: Tirofiban Inj 12,500 MCG/250 ML PLAST..BAG IV.CONT SCH (19:00)
[2018-04-01] MEDS ORDERED: Morphine Inj 4 MG/ML Vial IV.PUSH ONE (20:45)
[2018-04-02] MEDS: Morphine Sulfate Inj 2 MG/ML Vial IV.PUSH PRN ×2 (01:28→03:25)
[2018-04-02 05:51] LABS: Albumin 3.2 g/dL (3.4-5.0); Calcium 8.1 mg/dL (8.5-10.1); Carbon Dioxide 21.8 meq/L (21.0-32.0); Phosphorus 3.8 mg/dL (2.5-4.9); Potassium 3.5 meq/L (3.5-5.1)
[2018-04-02 06:05] LABS: Baso # (Auto) 0.1 th/mm3 (0.0-0.2); Baso % (Auto) 0.6 % (0.0-2.0); Eos # (Auto) 0.2 th/mm3 (0.0-0.4); Eos % (Auto) 1.9 % (0.0-4.0); Hematocrit 35.6 % (35.0-46.0); Lymph # (Auto) 2.7 th/mm3 (1.0-4.8); Lymph % (Auto) 22.5 % (9.0-44.0); Mean Corpuscular HGB Conc 33.7 % (32.0-36.0); Mean Corpuscular Volume 83.1 fL (80.0-100.0); Mean Platelet Volume 7.8 fL (7.0-11.0); Mono # (Auto) 0.9 th/mm3 (0.0-0.9); Mono % (Auto) 7.5 % (0.0-8.0); Neut % (Auto) 67.5 % (16.0-70.0); Platelet Count 255 th/mm3 (150-450); Red Blood Count 4.29 mil/mm3 (4.00-5.30); Red Cell Distribution Width 14.5 % (11.6-17.2); White Blood Count 11.9 th/mm3 (4.0-11.0)
[2018-04-02 06:45] LABS: Platelet Estimate Normal (Normal); Platelet Morphology Normal (Normal)
[2018-04-02] MEDS: Metoprolol Tartrate 25 MG Tablet PO SCH (09:38)
[2018-04-02] MEDS: Ramipril 2.5 MG Capsule PO SCH (09:39)
[2018-04-02] MEDS: Senna/Docusate Sodium 8.6/50 MG Tablet PO SCH (09:40)
--- NOTE | 2018-04-02 11:08 | P.PNIM ---
Subjective Interval history: Says she is feeling well. Denies any chest pain or shortness of breath. Feels like going home. Physical Exam Vital signs: Vital Signs 04/01/18 12:00 04/01/18 17:00 04/01/18 18:00 Temperature 98.3 F Pulse Rate 65 68 72 Respiratory Rate 14 Blood Pressure 138/67 Pulse Oximetry 98 04/01/18 19:00 04/01/18 19:56 04/01/18 20:00 Temperature 98.6 F Pulse Rate 73 66 Respiratory Rate 20 Blood Pressure 160/79 H Pulse Oximetry 92 L 97 04/01/18 21:00 04/01/18 21:13 04/01/18 22:00 Temperature Pulse Rate 80 92 H Respiratory Rate 22 Blood Pressure Pulse Oximetry 04/01/18 23:00 04/01/18 23:13 04/02/18 00:00 Temperature 97.4 F L Pulse Rate 84 89 Respiratory Rate 18 20 Blood Pressure 144/76 H Pulse Oximetry 97 04/02/18 01:00 04/02/18 02:00 04/02/18 03:00 Temperature Pulse Rate 84 89 75 Respiratory Rate Blood Pressure Pulse Oximetry 04/02/18 04:00 04/02/18 05:00 04/02/18 06:00 Temperature 98.6 F Pulse Rate 70 73 72 Respiratory Rate 16 Blood Pressure 139/74 Pulse Oximetry 99 04/02/18 08:00 04/02/18 08:25 04/02/18 09:55 Temperature 99.1 F Pulse Rate 75 80 77 Respiratory Rate 16 Blood Pressure 139/66 Pulse Oximetry 98 98 04/02/18 10:39 Temperature Pulse Rate 67 Respiratory Rate Blood Pressure Pulse Oximetry Intake & Output 04/01/18 04/02/18 04/02/18 18:59 06:59 18:59 Intake Total 730 / 730 850 / 850 140 / 140 Output Total 1350 / 1350 1250 / 1250 Balance -620 / -620 -400 / -400 140 / 140 Weight 94 kg Intake: IV 250 / 250 250 / 250 140 / 140 Aggrastat Inj 12,500 mcg In 250 250 / 250 140 / 140 ml @ Per Protocol IV.CONT .Q0M [facility] Rx#:[id number] Oral 480 / 480 600 / 600 Output: Urine 1350 / 1350 1250 / 1250 Other: Date of Last Bowel Movement 03/29/18 04/01/18 04/01/18 # Bowel Movements 1 Narrative: GENERAL: Patient lying in bed. Appears comfortable. Alert and oriented x4. SKIN: Warm and dry. HEAD: Normocephalic. EYES: No scleral icterus. No injection or drainage. NECK: Supple, trachea midline. No JVD. CARDIOVASCULAR: Regular rate and rhythm without murmurs, gallops, or rubs. RESPIRATORY: Breath sounds equal bilaterally. No accessory muscle use. GASTROINTESTINAL: Abdomen soft, non-tender, nondistended. MUSCULOSKELETAL: No cyanosis, or edema. BACK: Nontender without obvious deformity. No CVA tenderness. Results Labs CBC & Chem 7: 04/02/18 05:26 04/02/18 05:26 Procedures Procedures: 04/01: , status post cardiac catheterization, left circumflex vessel 95% stenosis, status post bare-metal stenting. Assessment and Plan (1) HTN (hypertension): Code(s): I10 - Essential (primary) hypertension Status: Acute (2) ACS (acute coronary syndrome): Code(s): I24.9 - Acute ischemic heart disease, unspecified Status: Acute Plan This is a 67-year-old female with no significant past medical history but with significant family history of cardiac illness, father at 35 from [place] presenting with chest pain for 1 day. //Unstable angina- //Coronary artery disease status post PCI on this admission Patient has strong family history, patient at 37 years old of [place]. Recent abnormal Stress Test 01/2018 back home in [place], now w/ ongoing chest pain, reproducible on chest palpation, cardiology consulted,recommendation for Heparin gtt, troponin negative x2, EKG negative, showed sinus rhythm, normal axis, no ischemia. Continue nitroglycerin, morphine as needed. Continue aspirin, statin and metoprolol. LDL 131. CTA negative for PE. Patient even with negative EKG and cardiac enzymes, status post cardiac catheterization, left circumflex vessel 95% stenosis, status post bare-metal stenting. There is a 70-75% stenosis of the proximal left anterior descending. Started ramipril and Effient. Monitor. = 04/01. Status post cardiac catheterization with PCI. Please see report. Continue medications as per cardiology. Hopefully discharge home tomorrow if doing well and cleared by cardiology. = 04/02. Discharge home on Effient, beta-myrtle, EULA inhibitor, statin, aspirin. Follow-up with cardiology as outpatient. //Hypernatremia. Sodium 146. Switch to half-normal saline and recheck tomorrow. = Resolved after half-normal saline. //Hypertension-continue metoprolol. -Blood pressure acceptable on current regimen. Continue to monitor. DVT prophylaxis: SCDs. anticoagulation as per cardiology. On anticoagulation as per cardiology. Disposition. Discharge today. Follow-up with cardiology as outpatient Discussed with patient, nurse, audioprosthologist. Progress Note: Quality VTE Deep Vein Thrombosis/Pulmonary Embolism Present on Admission: No _ (1) HTN (hypertension) Qualifiers: Hypertension type:
--- NOTE | 2018-04-02 11:09 | P.DS ---
DS: Providers Date of admission: 03/29/18 03:35 Primary care physician: Salvador Sandoval Consults: 03/29/18 03:17 Consult to Cardiology Routine Consulting Provider: Kenny Yin Does the patient have a Solution Design Engineer who follows them?: Yes Preferred Crop Grain Or Livestock Farmer:: Kenny Yin Reason for Consultation: per d/w Dr Chris Mai last night, concern for CAD , pt from [place], no local spray maker Spoke with:: ADDED TO LIST - COURTESY CALL IN AM Date Notified:: 03/29/18 Time Notified:: 04:17 Comments:: spoke to Dr Yin 0814 hrs - ML Ordering Provider: LIZ 03/29/18 16:23 HUB Only Consult Order Routine Consulting Provider: [facility],Insurance Brief History from admission: This is a 67-year-old female with no significant PMH who presented to the ER with complaints of chest pain x1 day. [facility] pain is substernal, moderate to severe, 7-8/10, non-radiating, associated w/ SOB. [facility] had previous Stress Test in [place] back in Jan 2018 which was abnormal , told by her Solution Design Engineer she would be re-checked in 6 months. Notes significant h/o Cardiac Disease, father at age 35yrs w/ SD, multiple family members w/ CAD. Today, w/ ongoing chest pain. Denies fever, chills or cough. On arrival, BP 179/82, HR 84, O2 sat 100% on RA, Afebrile. CBC unremarkable. INR 1.0. Chemistry unremarkable. Troponin negative x2. S/p multiple doses of NTG and Morphine in ER w/ persistent c/o chest pain. Dr. Yin consulted, recommendation for Heparin gtt w/ eval in am. DS: Diagnosis Discharge Diagnosis (1) HTN (hypertension): Status: Acute (2) ACS (acute coronary syndrome): Status: Acute DS: Summary //Unstable angina- //Coronary artery disease status post PCI on this admission Patient has strong family history, patient at 37 years old of [place]. Recent abnormal Stress Test 01/2018 back home in [place], now w/ ongoing chest pain, reproducible on chest palpation, cardiology consulted,recommendation for Heparin gtt, troponin negative x2, EKG negative, showed sinus rhythm, normal axis, no ischemia. Continue nitroglycerin, morphine as needed. Continue aspirin, statin and metoprolol. LDL 131. CTA negative for PE. Patient even with negative EKG and cardiac enzymes, status post cardiac catheterization, left circumflex vessel 95% stenosis, status post bare-metal stenting. There is a 70-75% stenosis of the proximal left anterior descending. Started ramipril and Effient. Monitor. = 04/01. Status post cardiac catheterization with PCI. Please see report. Continue medications as per cardiology. Hopefully discharge home tomorrow if doing well and cleared by cardiology. = 04/02. Discharge home on Effient, beta-myrtle, EULA inhibitor, statin, aspirin. Follow-up with cardiology as outpatient. //Hypernatremia. Sodium 146. Switch to half-normal saline and recheck tomorrow. = Resolved after half-normal saline. //Hypertension-continue metoprolol. -Blood pressure acceptable on current regimen. Continue to monitor. DVT prophylaxis: SCDs. anticoagulation as per cardiology. On anticoagulation as per cardiology. Disposition. Discharge today. Follow-up with cardiology as outpatient Discussed with patient, nurse, spray maker. Time Spent with Patient Total time spent providing and/or coordinating discharge services: Greater than 30 minutes Quality: VTE Deep Vein Thrombosis/Pulmonary Embolism Present on Admission: No Results Procedures completed during hospitalization: 04/01: , status post cardiac catheterization, left circumflex vessel 95% stenosis, status post bare-metal stenting. Labs on day of discharge: Labs from last 24 hours 04/02/18 04/02/18 05:26 05:26 WBC 11.9 H RBC 4.29 Hgb 12.0 Hct 35.6 MCV 83.1 MCH 28.0 MCHC 33.7 RDW 14.5 Plt Count 255 MPV 7.8 Prelim Diff (Auto) Slide review pending Neut % (Auto) 67.5 Lymph % (Auto) 22.5 Hayes % (Auto) 7.5 Eos % (Auto) 1.9 Baso % (Auto) 0.6 Neut # (Auto) 8.0 H Lymph # (Auto) 2.7 Hayes # (Auto) 0.9 Eos # (Auto) 0.2 Baso # (Auto) 0.1 WBC Differential . Diff Scan Auto diff confirmed Differential Comment . Platelet Estimate Normal Platelet Morphology Normal Hematology Comments Sodium 142 Potassium 3.5 Chloride 110 H Carbon Dioxide 21.8 Anion Gap 10 BUN 8 Creatinine 0.79 Estimated GFR 73 L Random Glucose 120 H Calcium 8.1 L Phosphorus 3.8 Total Creatine Kinase 53 Albumin 3.2 L Impressions ITS Impressions Chest X-Ray 03/28/18 00:00 CONCLUSION: No acute cardiopulmonary abnormality. Moderate hiatal hernia. Chest CTA 03/29/18 00:17 CONCLUSION: This study is negative for pulmonary embolism. Discharge Plan Discharge Disposition Patient Disposition: 01 Discharge Home Discharge Condition Condition: Good Discharge Order Discharge Orders: Discharge Order (Routine); Ordered 04/02/18 Ordered By: Jose Alberto Redmond Discharge Details Anticipated Discharge Date: 04/02/18 Discharge Comment: Patient is to call Dr. Yin's office [phone] to set up an appointment Physicians Team Attending Provider: Jose Alberto Redmond Other Providers: [employer],Insurance ; Kenny Yin Rxs /Orders / Referrals /Forms Prescriptions: New metoprolol tartrate 25 mg Tablet 25 mg PO BID 30 Days Qty: 60 RF: 0 pravastatin 40 mg Tablet 40 mg PO DAILY 30 Days Qty: 30 RF: 0 aspirin 81 mg Tablet,Chewable 162 mg PO DAILY 30 Days Qty: 60 RF: 0 ramipril 2.5 mg Capsule 2.5 mg PO DAILY 30 Days Qty: 30 RF: 0 prasugrel [Effient] 10 mg Tablet 10 mg PO DAILY 30 Days Qty: 30 RF: 0 No Action No Known Home Medications RF: 0 Referrals: Salvador Sandoval [Other] - See Instructions Kenny Yin MD [Physician] - See Instructions Discharge Instructions Patient Printed Instructions: Chest Pain (ED) Discharge Interventions Interventions: Discharge Planning - Case Management Last Done: 03/31/18 14:12 Status ED Status: Left Department
[2018-04-02 11:18] VITALS: BP 134/74; RESP 18; TEMP 98.9; O2SAT 97
--- NOTE | 2018-04-02 13:33 | P.PNCA ---
Subjective Interval history: assymptomatic in nad Medications and Allergies Active Medications: Active Medications Acetaminophen (Tylenol) 650 mg PO Q4H PRN PRN Reason: Temp > 100.4 Last Admin: 04/01/18 13:49 Dose: 650 mg Al Hydroxide/Mg Hydroxide (Milk Of Magnesia Liq) 30 ml PO Q12H PRN PRN Reason: Mild Constipation Aspirin (Aspirin Chew) 162 mg PO DAILY [facility] Last Admin: 04/02/18 09:38 Dose: 162 mg Bisacodyl (Dulcolax Supp) 10 mg RECTAL DAILY PRN PRN Reason: SEVERE CONSITIPATION Tirofiban/Sodium Chloride (Aggrastat Inj) 12,500 mcg in 250 mls @ 0 mls/hr IV.CONT .Q0M [facility]; Protocol Last Infusion: 04/02/18 10:00 Dose: 0 mcg/kg/min, 0 mls/hr Sodium Chloride (1/2 Normal Saline Inj) 1,000 mls @ 100 mls/hr IV.CONT .Q10H [facility] Lactulose (Lactulose Liq) 30 ml PO DAILY PRN PRN Reason: SEVERE CONSITIPATION Metoprolol Tartrate (Lopressor) 25 mg PO BID [facility] Last Admin: 04/02/18 09:38 Dose: 25 mg Morphine Sulfate (Morphine Inj) 2 mg IV.PUSH Q2H PRN PRN Reason: CHEST PAIN Last Admin: 04/02/18 03:25 Dose: 2 mg Nitroglycerin (Nitro-Bid 2% Oint) 1 inch TOPICAL Q6HR [facility] Last Admin: 04/01/18 12:53 Dose: 1 inch Ondansetron HCl (Zofran Inj) 4 mg IV.PUSH Q6H PRN PRN Reason: NAUSEA OR VOMITING Prasugrel (Effient) 10 mg PO DAILY [facility] Last Admin: 04/02/18 09:38 Dose: 10 mg Pravastatin Sodium (Pravachol) 40 mg PO DAILY [facility] Last Admin: 04/02/18 09:38 Dose: 40 mg Ramipril (Altace) 2.5 mg PO DAILY [facility] Last Admin: 04/02/18 09:39 Dose: 2.5 mg Senna/Docusate Sodium (Lola-Colace) 1 tab PO BID [facility] Last Admin: 04/02/18 09:40 Dose: Not Given Sennosides (Senokot) 17.2 mg PO Q12H PRN PRN Reason: Moderate Constipation Sodium Chloride (Ns Flush) 2 ml IV.FLUSH BID [facility] Last Admin: 04/02/18 09:40 Dose: Not Given Sodium Chloride (Ns Flush) 2 ml IV.FLUSH PRN PRN PRN Reason: FLUSH AFTER USING IV ACCESS Sodium Chloride (Ns Flush) 2 ml IV.FLUSH BID [facility] Last Admin: 04/02/18 09:40 Dose: Not Given Sodium Chloride (Ns Flush) 2 ml IV.FLUSH PRN PRN PRN Reason: FLUSH AFTER USING IV ACCESS Sodium Chloride (Ns Flush) 2 ml IV.FLUSH PRN PRN PRN Reason: FLUSH AFTER USING IV ACCESS Allergies Allergy/AdvReac Type Severity Reaction Status Date / Time No Known Allergies Allergy Verified 03/28/18 20:27 Physical Exam Vital signs: Vital Signs 04/01/18 17:00 04/01/18 18:00 04/01/18 19:00 Temperature Pulse Rate 68 72 73 Respiratory Rate Blood Pressure Pulse Oximetry 04/01/18 19:56 04/01/18 20:00 04/01/18 21:00 Temperature 98.6 F Pulse Rate 66 80 Respiratory Rate 20 Blood Pressure 160/79 H Pulse Oximetry 92 L 97 04/01/18 21:13 04/01/18 22:00 04/01/18 23:00 Temperature Pulse Rate 92 H 84 Respiratory Rate 22 Blood Pressure Pulse Oximetry 04/01/18 23:13 04/02/18 00:00 04/02/18 01:00 Temperature 97.4 F L Pulse Rate 89 84 Respiratory Rate 18 20 Blood Pressure 144/76 H Pulse Oximetry 97 04/02/18 02:00 04/02/18 03:00 04/02/18 04:00 Temperature 98.6 F Pulse Rate 89 75 70 Respiratory Rate 16 Blood Pressure 139/74 Pulse Oximetry 99 04/02/18 05:00 04/02/18 06:00 04/02/18 08:00 Temperature Pulse Rate 73 72 75 Respiratory Rate Blood Pressure Pulse Oximetry 04/02/18 08:25 04/02/18 09:55 04/02/18 10:39 Temperature 99.1 F Pulse Rate 80 77 67 Respiratory Rate 16 Blood Pressure 139/66 Pulse Oximetry 98 98 04/02/18 11:17 Temperature 98.9 F Pulse Rate 74 Respiratory Rate 18 Blood Pressure 134/74 Pulse Oximetry 97 Intake & Output 04/01/18 04/02/18 04/02/18 18:59 06:59 18:59 Intake Total 730 / 730 850 / 850 140 / 140 Output Total 1350 / 1350 1250 / 1250 Balance -620 / -620 -400 / -400 140 / 140 Weight 94 kg Intake: IV 250 / 250 250 / 250 140 / 140 Aggrastat Inj 12,500 mcg In 250 250 / 250 140 / 140 ml @ Per Protocol IV.CONT .Q0M [facility] Rx#:[id number] Oral 480 / 480 600 / 600 Output: Urine 1350 / 1350 1250 / 1250 Other: Date of Last Bowel Movement 03/29/18 04/01/18 04/01/18 # Bowel Movements 1 - Constitutional no acute distress - Routine HEENT Exam Head: Present: normocephalic - Routine Neck Exam Present: supple - Routine Respiratory Exam Present: CTA bilaterally - Routine Cardiovascular Exam Present: S1, S2 - Routine Abdominal Exam Present: soft - Routine Extremities Exam Comments: no riki Results 04/02/18 05:26 04/02/18 05:26 Lipids 04/01/18 Range/Units 04:33 Triglycerides 90 (42-150) mg/dL Cholesterol 172 (120-200) mg/dL HDL Cholesterol 48.5 (40.0-60.0) mg/dL Cholesterol/HDL Ratio 3.54 Ratio CBC 04/01/18 04/02/18 Range/Units 04:33 05:26 WBC 7.4 D 11.9 H (4.0-11.0) th/mm3 RBC 4.08 4.29 (4.00-5.30) mil/mm3 Hgb 11.7 12.0 (11.6-15.3) gm/dL Hct 34.4 L 35.6 (35.0-46.0) % Plt Count 270 255 (150-450) th/mm3 Neut # (Auto) 4.5 8.0 H (1.8-7.7) th/mm3 Lymph # (Auto) 2.2 2.7 (1.0-4.8) th/mm3 [place] # (Auto) 0.5 0.9 (0.0-0.9) th/mm3 Eos # (Auto) 0.2 0.2 (0.0-0.4) th/mm3 Baso # (Auto) 0.0 0.1 (0.0-0.2) th/mm3 Comprehensive Metabolic Panel 04/01/18 04/02/18 Range/Units 04:33 05:26 Sodium 146 H 142 (136-145) meq/L Potassium 3.4 L 3.5 (3.5-5.1) meq/L Chloride 113 H 110 H (98-107) meq/L Carbon Dioxide 25.7 21.8 (21.0-32.0) meq/L BUN 6 L 8 (7-18) mg/dL Creatinine 0.65 0.79 (0.50-1.00) mg/dL Calcium 8.3 L 8.1 L (8.5-10.1) mg/dL Albumin 3.2 L (3.4-5.0) g/dL Intake and Output 04/01/18 04/02/18 04/02/18 22:59 06:59 14:59 Intake Total 480 / 480 850 / 850 140 / 140 Output Total 1350 / 1350 1250 / 1250 Balance -870 / -870 -400 / -400 140 / 140 Intake: IV 250 / 250 140 / 140 Aggrastat Inj 12,500 mcg In 250 140 / 140 ml @ Per Protocol IV.CONT .Q0M [facility] Rx#:[id number] Oral 480 / 480 600 / 600 Output: Urine 1350 / 1350 1250 / 1250 Other: Date of Last Bowel Movement 04/01/18 04/01/18 04/01/18 # Bowel Movements 1 Weight 94 kg Assessment and Plan - Assessment (1) HTN (hypertension) Code(s): I10 - Essential (primary) hypertension Status: Acute (2) ACS (acute coronary syndrome) Code(s): I24.9 - Acute ischemic heart disease, unspecified Status: Acute - Plan 1.) ACS - assymptomatic s/p bms lcx and lad, continue aspirin, effient, f/u with me sudha
[2018-04-02 13:35] VITALS: PULSE 72
--- NOTE | 2018-04-02 22:41 | ECG ---
Date Performed: 04/02/2018 Time Performed: 03:47:36 PTAGE: 67 years EKG: Sinus rhythm with PVC(s) Left axis deviation Abnormal ECG PREVIOUS TRACING : 03/30/2018 19.32 DOCTOR: Kendall Tsai Interpretating Date/Time 04/02/2018 22:40:26
== END 2018-04-02 14:30 | disposition home or self-care (01) | DRG 249 ==
LOC: NEPE 20:02 → NEDA 03-29 03:35 → HCIS 03-29 04:00
PROVIDERS: ADMIT Internal Medicine; ATTEND Internal Medicine
DX: I24.9 Acute ischemic heart disease, unspecified; I95.9 Hypotension, unspecified; E87.6 Hypokalemia; I25.110 Atherosclerotic heart disease of native coronary artery with unstable angina pectoris; I10 Essential (primary) hypertension; E87.0 Hyperosmolality and hypernatremia; Z82.49 Family history of ischemic heart disease and other diseases of the circulatory system
CPT/HCPCS: 71020; 71046; 71275; 80048; 80053; 80061; 80069; 82550; 83735; 84484; 84702; 85002; 85025; 85027; 85610; 85730; 90774; 90775; 90776; 90784; 92928; 93005; 93458; 96374; 96375; 96376; 99152; 99153; 99285; C1725; C1769; C1876; C1887; C1893; C8952; J1644; J2250; J2270; J3010; J3246; J7030; Q9967